=== PATIENT | female | born 1970 | race African-American/Black ===

== ENCOUNTER 2017-10-17 01:35 | Emergency (ER) | payer SELFPAY ==
[2017-10-17] MEDS ORDERED: OXYCODONE-ACETAMINOPHEN 5-325 MG TABLET PO ONE ×2 (02:04→03:41)
--- NOTE | 2017-10-17 02:12 | ER Document Report ---
ED General - General Chief Complaint: Foot Injury Stated Complaint: FOOT INJURY Time Seen by Provider: 10/17/17 01:59 Notes: Patient is a 47-year-old female who presents with complaint of right foot and ankle pain. She was playing basketball and rolled her ankle and felt a snap. She initially could bear weight but now says it hurts too much to bear weight. He denies any other injuries. TRAVEL OUTSIDE OF THE U.S. IN LAST 30 DAYS: No - Related Data Allergies/Adverse Reactions: No Known Allergies Allergy (Verified 10/17/17 01:40) Past Medical History - Social History Smoking Status: Unknown if Ever Smoked Frequency of alcohol use: None Drug Abuse: None Family History: CAD - mother has a heart problem but doesn't know what. She was told in the past she had a heart attack but denies, because it was painless. , Hypertension - Past Medical History Cardiac Medical History: Reports: Hx Hypertension - noncompliant with medications Pulmonary Medical History: Reports: Hx Asthma - states is not on any meds Renal/ Medical History: Reports: Hx Ovarian Cysts GI Medical History: Reports: Hx Crohn's Disease - in remission for 2 years, Hx Ulcer, Hx Colonoscopy, Hx Endoscopy Musculoskeltal Medical History: Reports Hx Arthritis, Reports Hx Musculoskeletal Trauma Skin Medical History: Reports Hx Cellulitis Psychiatric Medical History: Reports: Hx Anxiety, Hx Attention Deficit Hyperactivity Disorder, Hx Bipolar Disorder, Hx Depression, Hx Schizophrenia Past Surgical History: Reports: Hx Hysterectomy, Hx Oral Surgery - Immunizations Immunizations up to date: No Hx Diphtheria, Pertussis, Tetanus Vaccination: Yes - <5 years Review of Systems - Review of Systems Notes: My Normal Review Basic REVIEW OF SYSTEMS: CONSTITUTIONAL : Denies fever, chills, or sweats. Denies recent illness. MUSCULOSKELETAL: Pain in right foot and ankle. SKIN: Denies rash or skin lesions. NEUROLOGICAL: Denies sensory or motor loss. ALL OTHER SYSTEMS REVIEWED AND NEGATIVE. Physical Exam - Vital signs Vitals: Temp Pulse Resp BP Pulse Ox 98.1 F 87 20 171/98 H 97 10/17/17 01:46 10/17/17 01:46 10/17/17 01:46 10/17/17 01:46 10/17/17 01:46 - Notes Notes: General Appearance: Well nourished, alert, cooperative, no acute distress, moderate obvious discomfort. Vitals: reviewed, See vital signs table. Eyes: PERRL, EOMI, Conjuctiva clear Extremities: strength 5/5 in all extremities, good pulses in all extremities, swelling to the lateral aspect of the right foot and ankle. Pain to palpation over the area of swelling. Medial aspect of the foot and ankle is nontender. Knee is nontender to palpation. Skin: warm, dry, appropriate color, no rash Neuro: She is subjectively says she has some mild numbness in her toes however she can feel me touch all her toes well without difficulty. She is able to move all toes and her foot without difficulty. Course - Vital Signs Vital signs: Temp Pulse Resp BP Pulse Ox 97.8 F 86 18 159/78 H 99 10/17/17 05:14 10/17/17 05:14 10/17/17 05:14 10/17/17 05:14 10/17/17 05:14 Procedures - Immobilization right foot Pre-Proc Neuro Vasc Exam: Other - mild numbness in toes Immobilizer type: Posterior ankle Performed by: PCT Post-Proc Neuro Vasc Exam: Unchanged from pre-exam Discharge - Discharge Clinical Impression: Foot fracture, right Qualifiers: Encounter type: initial encounter Fracture type: closed Qualified Code(s): S92.901A - Unspecified fracture of right foot, initial encounter for closed fracture Condition: Good Disposition: HOME, SELF-CARE Instructions: Oral Narcotic Medication ([facility]) Additional Instructions: You have an avulsion fracture at the base of the 5th metatarsal. The fifth metatarsal is the bone in her foot that sits behind her pinky toe. You should wear the splint and using crutches until cleared by the orthopedic doctor. Please try and follow up with orthopedic doctor. If you are unable to see the orthopedic doctor you can return to the ER in 2 weeks for repeat x-rays. Please loosen the [place] wrap on the splint if you feel that the splint is too tight. Return to the ER immediately if you have worsening pain or repeat injury to your foot. Prescriptions: Hydrocodone/Acetaminophen [[place] 10-325 Tablet] 1 each PO Q4 PRN #15 tablet PRN Reason: Referrals: CHIQUI GALE MD [ACTIVE STAFF] - Follow up in 3-5 days
--- NOTE | 2017-10-17 02:40 | RADIOLOGY REPORT (SQ) ---
EXAM DESCRIPTION: ANKLE RIGHT COMPLETE CLINICAL HISTORY: trauma COMPARISON: None. FINDINGS: 3 views of the right ankle. Avulsion fracture involving the base of the fifth metatarsal. Plantar calcaneal spur. Normal osseous mineralization. Tibial plafond and talar dome have normal alignment. IMPRESSION: 1. Avulsion fracture involving the base of the fifth metatarsal.
--- NOTE | 2017-10-17 02:41 | RADIOLOGY REPORT (SQ) ---
EXAM DESCRIPTION: FOOT RIGHT COMPLETE CLINICAL HISTORY: trauma COMPARISON: None. FINDINGS: 3 views of the right foot. Acute nondisplaced avulsion fracture involving the base of the fifth metatarsal. Plantar calcaneal spur. Normal osseous mineralization. No other fracture identified. The tarsals and metatarsals appear appropriately aligned. IMPRESSION: 1. Acute nondisplaced avulsion fracture involving the base of the fifth metatarsal.
[2017-10-17] MEDS ORDERED: HYDROCODONE/ACETAMINOPHEN 5-325 MG (6 TAB/ER DISP) PO PRN (04:43)
[2017-10-17 05:15] VITALS: BP 159/78
== END 2017-10-17 05:14 | disposition home or self-care (01) ==
LOC: ER 01:35
DX: S92.354A Nondisplaced fracture of fifth metatarsal bone, right foot, initial encounter for closed fracture (principal); M79.671 Pain in right foot; M25.571 Pain in right ankle and joints of right foot; X50.0XXA Overexertion from strenuous movement or load, initial encounter; Y93.67 Activity, basketball; I10 Essential (primary) hypertension; J45.909 Unspecified asthma, uncomplicated
CPT/HCPCS: 99283

== ENCOUNTER 2017-10-30 02:23 | Emergency (ER) | payer SELFPAY ==
[2017-10-30] MEDS ORDERED: OXYCODONE-ACETAMINOPHEN 5-325 MG TABLET PO ONE (04:14)
--- NOTE | 2017-10-30 04:18 | ER Document Report ---
ED General - General Chief Complaint: Foot Injury Stated Complaint: RIGHT FOOT BROKEN Time Seen by Provider: 10/30/17 03:21 Mode of Arrival: Ambulatory Information source: Patient Notes: 47-year-old female with a history of recent right foot fracture presents with complaint of increasing right foot pain after falling last night. Patient states that she was walking with her crutches when she miss stepped and it caused her to fall backwards onto her butt. She denies any head injury, loss of consciousness. She is a resident of [place] and is here visiting her mother. She had a fall 2 weeks ago and was seen in the emergency department and found to have an avulsion fracture of the right fifth metatarsal. Patient was placed in a splint at that time provided crutches. She has not had orthopedic follow- up yet because she wanted to assure coverage. Patient currently denies headache , changes in vision, slurred speech, spinal tenderness, chest pain, shortness of breath, abdominal pain. TRAVEL OUTSIDE OF THE U.S. IN LAST 30 DAYS: No - HPI Onset: Yesterday Quality of pain: Achy, Throbbing Severity: Mild Pain Level: 1 Associated symptoms: None Exacerbated by: Denies Relieved by: Denies Similar symptoms previously: Yes Recently seen / treated by doctor: Yes - Related Data Allergies/Adverse Reactions: No Known Allergies Allergy (Verified 10/17/17 01:40) Past Medical History - General Information source: Patient - Social History Smoking Status: Current Every Day Smoker Chew tobacco use (# tins/day): No Frequency of alcohol use: None Drug Abuse: None Family History: CAD - mother has a heart problem but doesn't know what. She was told in the past she had a heart attack but denies, because it was painless. , Hypertension Patient has suicidal ideation: No Patient has homicidal ideation: No - Past Medical History Cardiac Medical History: Reports: Hx Hypertension - noncompliant with medications Pulmonary Medical History: Reports: Hx Asthma - states is not on any meds Renal/ Medical History: Reports: Hx Ovarian Cysts. Denies: Hx Peritoneal Dialysis GI Medical History: Reports: Hx Crohn's Disease - in remission for 2 years, Hx Ulcer, Hx Colonoscopy, Hx Endoscopy Musculoskeltal Medical History: Reports Hx Arthritis, Reports Hx Musculoskeletal Trauma Skin Medical History: Reports Hx Cellulitis Psychiatric Medical History: Reports: Hx Anxiety, Hx Attention Deficit Hyperactivity Disorder, Hx Bipolar Disorder, Hx Depression, Hx Schizophrenia Past Surgical History: Reports: Hx Hysterectomy, Hx Oral Surgery - Immunizations Immunizations up to date: No Hx Diphtheria, Pertussis, Tetanus Vaccination: Yes - <5 years Review of Systems - Review of Systems Notes: Patient currently denies headache, loss of consciousness, changes in vision, slurred speech, spinal tenderness, chest pain, shortness of breath, abdominal pain. Currently complaining of increased pain in the right foot. Physical Exam - Vital signs Vitals: Temp Pulse Resp BP Pulse Ox 98 F 70 18 150/94 H 97 10/30/17 02:27 10/30/17 02:27 10/30/17 02:27 10/30/17 02:27 10/30/17 02:27 Interpretation: Normal, Hypertensive Notes: PHYSICAL EXAMINATION: GENERAL: Well-appearing, well-nourished and in no acute distress. HEAD: Atraumatic, normocephalic. EYES: Pupils equal round and reactive to light, extraocular movements intact, conjunctiva are normal. ENT: Nares patent, oropharynx clear without exudates. Moist mucous membranes. NECK: Normal range of motion, supple without lymphadenopathy LUNGS: Breath sounds clear to auscultation bilaterally and equal. No wheezes rales or rhonchi. HEART: Regular rate and rhythm without murmurs ABDOMEN: Soft, nontender, nondistended abdomen. No guarding, no rebound. No masses appreciated. Female : deferred Musculoskeletal: Right lower extremity splint. Right foot tenderness, edema. Cap refill intact. Patient able to wiggle her toes. DP pulse intact. No calf tenderness. NEUROLOGICAL: Cranial nerves grossly intact. Normal speech, normal gait. Normal sensory, motor exams PSYCH: Normal mood, normal affect. SKIN: Warm, Dry, normal turgor, no rashes or lesions noted. - General General appearance: Appears well, Alert - HEENT Head: Normocephalic, Atraumatic Eyes: Normal Pupils: PERRL - Respiratory Respiratory status: No respiratory distress Chest status: Nontender Breath sounds: Normal Chest palpation: Normal - Cardiovascular Rhythm: Regular Heart sounds: Normal auscultation Murmur: No - Abdominal Inspection: Normal Distension: No distension Bowel sounds: Normal Tenderness: Nontender Organomegaly: No organomegaly - Back Back: Normal, Nontender. No: Vertebra tenderness - Extremities General upper extremity: Normal inspection - RLE in splint which was removed skin intact. sensation and cap refill intact. able to wiggle toes DP intact. somr flaking of skin but no blidters or skin breakdown, Nontender, Normal color , Normal ROM, Normal temperature General lower extremity: Normal inspection, Nontender, Normal color, Normal ROM , Normal temperature, Normal weight bearing. No: Rosanne's sign Ankle: Normal Foot: Tender, Edema - Neurological Neuro grossly intact: Yes Cognition: Normal Orientation: AAOx4 [place] Coma Scale Eye Opening: Spontaneous [place] Coma Scale Verbal: Oriented D[place] Coma Scale Motor: Obeys Commands Dilia Coma Scale Total: 15 Speech: Normal Motor strength normal: LUE, RUE, LLE, RLE Sensory: Normal Course - Re-evaluation Re-evalutation: Foot X-Ray 10/30/17 04:14 IMPRESSION: 1. Redemonstrated nondisplaced avulsion fracture involving the base of the fifth metatarsal. No significant interval change. 10/30/17 05:22 Repeat x-ray was obtained and showed no interval change after the fall. We replaced her splint. They will provide her with a short course of pain medication and give her orthopedic follow-up because the patient states she is lost her paperwork. 10/30/17 13:17 47 female s/p foot fracture at end of September presents s/p second fall yesterday evening. repeat x-rays unchanged. bandage and splint are cracked and filthy so replaced. Patient already has crutches. advised to f/u with ortho. Patient requesting additional meds which were provided but patient made aware that the ER will no longer supply her pain medication if she is not compliant with our instructions to f/u with ortho. 10/30/17 23:35 - Vital Signs Vital signs: Temp Pulse Resp BP Pulse Ox 98.1 F 71 16 148/88 H 97 10/30/17 05:51 10/30/17 05:51 10/30/17 05:51 10/30/17 05:51 10/30/17 05:51 Discharge - Discharge Clinical Impression: Foot fracture, right Qualifiers: Encounter type: sequela Fracture type: closed Qualified Code(s): S92.901S - Unspecified fracture of right foot, sequela Condition: Good Disposition: HOME, SELF-CARE Instructions: Foot Fracture ([facility]) Prescriptions: Oxycodone HCl/Acetaminophen [Percocet 5-325 mg Tablet] 1 tab PO Q6H PRN #12 tablet PRN Reason: Forms: Elevated Blood Pressure Referrals: CHIQUI GALE MD [ACTIVE STAFF] - Follow up as needed
--- NOTE | 2017-10-30 04:38 | RADIOLOGY REPORT (SQ) ---
EXAM DESCRIPTION: FOOT RIGHT COMPLETE CLINICAL HISTORY: fall recent fx COMPARISON: 10/17/2017 FINDINGS: 3 views of the right foot. Redemonstrated avulsion fracture involving the base of the fifth metatarsal. No new fractures identified. Tarsals and metatarsals are appropriately aligned. IMPRESSION: 1. Redemonstrated nondisplaced avulsion fracture involving the base of the fifth metatarsal. No significant interval change.
[2017-10-30 05:56] VITALS: BP 148/88
== END 2017-10-30 06:02 | disposition home or self-care (01) ==
LOC: ER 02:23
DX: S92.354A Nondisplaced fracture of fifth metatarsal bone, right foot, initial encounter for closed fracture (principal); W19.XXXA Unspecified fall, initial encounter; F17.200 Nicotine dependence, unspecified, uncomplicated; I10 Essential (primary) hypertension; J45.909 Unspecified asthma, uncomplicated
CPT/HCPCS: 99283

== ENCOUNTER 2017-12-03 15:56 | Emergency (ER) | payer SELFPAY ==
[2017-12-03 16:05] VITALS: BP 152/96
[2017-12-03] MEDS ORDERED: ALPRAZOLAM 0.5 MG TABLET PO ONE (16:36)
--- NOTE | 2017-12-03 16:47 | ER Document Report ---
ED General - General Chief Complaint: Anxiety Stated Complaint: ANXIETY/PAIN IN FOOT Time Seen by Provider: 12/03/17 16:09 Mode of Arrival: Ambulatory Information source: Patient TRAVEL OUTSIDE OF THE U.S[place] IN LAST 30 DAYS: No - HPI Patient complains to provider of: Right foot pain and anxiety Notes: Patient is here with 2 complaints. The patient broke her foot 2 months ago and continues to have some pain in the right foot. She tells me that she is originally from [place] insurance here and was unable to be seen and evaluated by orthopedics. She has been seen here 2 times and received prescriptions for pain medications twice for her foot. She states that she is continuing to have pain. She does report that she fell a few days ago but does not believe that she reinjured her foot. I did offer to x-ray her foot again today, she declined to have that done at this time. No fever, numbness, tingling, weakness. Patient also states that she is out of her Zyprexa. She is also out of her Xanax. She is requesting a refill of her Xanax, but states that the Zyprexa cost $800 and she cannot afford it. She denies any homicidal or suicidal ideation at this time. She simply would like a refill on her medications. She tells me that she is currently staying here because she recently found out that her sister is on dialysis she is not exactly sure when she will be going back to [place]. She is attempted to go back to the [facility] in the past, but states that the medications they were giving her were not helping. - Related Data Allergies/Adverse Reactions: No Known Allergies Allergy (Verified 10/17/17 01:40) Past Medical History - Social History Smoking Status: Current Every Day Smoker Frequency of alcohol use: Occasional Drug Abuse: None Family History: CAD - mother has a heart problem but doesn't know what. She was told in the past she had a heart attack but denies, because it was painless. , Hypertension Patient has suicidal ideation: No Patient has homicidal ideation: No - Past Medical History Cardiac Medical History: Reports: Hx Hypertension - noncompliant with medications Pulmonary Medical History: Reports: Hx Asthma - states is not on any meds Renal/ Medical History: Reports: Hx Ovarian Cysts. Denies: Hx Peritoneal Dialysis GI Medical History: Reports: Hx Crohn's Disease - in remission for 2 years, Hx Ulcer, Hx Colonoscopy, Hx Endoscopy Musculoskeltal Medical History: Reports Hx Arthritis, Reports Hx Musculoskeletal Trauma Skin Medical History: Reports Hx Cellulitis Psychiatric Medical History: Reports: Hx Anxiety, Hx Attention Deficit Hyperactivity Disorder, Hx Bipolar Disorder, Hx Depression, Hx Schizophrenia Past Surgical History: Reports: Hx Hysterectomy, Hx Oral Surgery - Immunizations Immunizations up to date: No Hx Diphtheria, Pertussis, Tetanus Vaccination: Yes - <5 years Review of Systems - Review of Systems -: Yes All other systems reviewed and negative Physical Exam - Vital signs Vitals: Temp Pulse Resp BP Pulse Ox 99.1 F 71 16 152/96 H 98 12/03/17 16:03 12/03/17 16:03 12/03/17 16:03 12/03/17 16:03 12/03/17 16:03 - Notes Notes: GENERAL: alert, cooperative, nontoxic, no distress. HEAD: normocephalic, atraumatic EYES: conjunctiva pink without discharge, no external redness or swelling. EARS: no external swelling, no external redness NOSE: atraumatic, no external swelling MOUTH/THROAT: mucous membranes moist and pink NECK: soft, supple, full range of motion, no meningismus. CHEST: no distress, lungs clear and equal throughout. No wheezing, rales, rhonchi. CARDIAC: regular rate and rhythm, no murmur, normal capillary refill, normal pulses. BACK: full range of motion, no CVA tenderness. EXTREMITIES: full range of motion of all extremities. No redness, no swelling. Tenderness to the lateral aspect of the right foot. No deformity. Normal pulse and sensation. NEURO: alert and oriented 3, no focal deficits, full range of motion of all extremities. PYSCH: appropriate mood, affect. Patient is cooperative. Suicidal ideation. SKIN: pink, warm, dry, no rash. Course - Re-evaluation Re-evalutation: 12/03/17 16:44 Patient is nontoxic appearing with stable vitals. She is here requesting a refill on pain medication for a foot she broke a few months ago as well as a refill on her Xanax and her Zyprexa. Explained that I cannot write her any further pain medications for her chronic fractured foot, and that it is extremely important for her to follow-up with either orthopedics or podiatry if she continues to have pain in her foot. I also explained that I cannot refill her Xanax. I did offer to write her for Vistaril to help with her anxiety, she declined to have that prescription. I was able to find several prescription drug savings for her Zyprexa on good Rx. She can have this filled for $20 at [facility], $22 at [facility], $37 at [facility], $37 at [facility]. She was given these coupons as well as a good Rx card and will be given a prescription for her Zyprexa. She will also be given another referral to [facility] and will be given a referral to podiatry. The patient is noted to have elevated blood pressure during today's emergency department visit. The patient was informed of this finding. The patient was instructed that this may be related to pre-hypertension and requires further evaluation with a primary care provider. The patient has no hypertensive symptoms at this time. The patient's emergency department workup and current diagnosis were explained to the patient and or family. Follow-up instructions were provided. Medications if prescribed were discussed. Instructions for when to return to the emergency department including specific worrisome symptoms were discussed with the patient and/or family. - Vital Signs Vital signs: Temp Pulse Resp BP Pulse Ox 99.1 F 71 16 152/96 H 98 12/03/17 16:03 12/03/17 16:03 12/03/17 16:03 12/03/17 16:03 12/03/17 16:03 Discharge - Discharge Clinical Impression: Anxiety Chronic foot pain Qualifiers: Laterality: right Qualified Code(s): M79.671 - Pain in right foot; G89.29 - Other chronic pain; G89.29 - Other chronic pain Condition: Stable Disposition: HOME, SELF-CARE Instructions: Anxiety ([facility]), Chronic Pain Control ([facility]) Additional Instructions: Take medications as prescribed. Established with a primary care doctor to next available appointment. Follow-up with podiatry at the next available appointment. Follow-up sooner for any worsening symptoms or further concerns. Your blood pressure was elevated during today's visit. Have this rechecked with your doctor. Prescriptions: Olanzapine [Zyprexa] 20 mg PO DAILY #30 tablet Forms: Elevated Blood Pressure, Smoking Cessation Education Referrals: HARRIET SUMNER DPM [ACTIVE STAFF] - Follow up as needed KACIE TREJO DPM [ACTIVE STAFF] - Follow up as needed JOAQUÍN ROBLES DPM [ACTIVE STAFF] - Follow up as needed KAE TORRES DPM [ACTIVE STAFF] - Follow up as needed LAITH FRENCH DPM [NO LOCAL MD] - Follow up as needed ABBY KEVIN DPM [NO LOCAL MD] - Follow up as needed [facility] [Provider Group] - Follow up as needed
== END 2017-12-03 16:54 | disposition home or self-care (01) ==
LOC: ER 15:56
DX: G89.29 Other chronic pain (principal); M79.671 Pain in right foot; F41.9 Anxiety disorder, unspecified; T42.4X6A Underdosing of benzodiazepines, initial encounter; F31.9 Bipolar disorder, unspecified; F20.9 Schizophrenia, unspecified; T43.596A Underdosing of other antipsychotics and neuroleptics, initial encounter; Z91.128 Patient's intentional underdosing of medication regimen for other reason; Z91.120 Patient's intentional underdosing of medication regimen due to financial hardship; Z91.81 History of falling; J45.909 Unspecified asthma, uncomplicated; I10 Essential (primary) hypertension
CPT/HCPCS: 99283

== ENCOUNTER 2018-02-18 22:29 | Emergency (ER) | payer SELFPAY ==
--- NOTE | 2018-02-19 00:43 | ER Document Report ---
ED General <SWEETIE SALAZAR - Last Filed: 02/19/18 02:47> - General Mode of Arrival: Ambulatory Information source: Patient TRAVEL OUTSIDE OF THE U.S. IN LAST 30 DAYS: No <CHARAN LOVE - Last Filed: 02/19/18 05:55> - General Chief Complaint: Vaginal Bleeding Stated Complaint: ANXIETY Time Seen by Provider: 02/19/18 00:27 Notes: Patient is a 47 year old female with Crohn's Disease and HTN presents to the emergency department complaining of multiple symptoms including nausea, anxiety and vaginal bleeding. Patient states when she wiped after having a bowel movement she noticed some blood on the toilet paper. She states this is abnormal for her due to having a complete hysterectomy. She further states she has been out of her anxiety medication of Zyprexa for 3 days. She states she normally takes 20 mg 2x daily of Zyprexa. (CHARAN LOVE) - Related Data Allergies/Adverse Reactions: No Known Allergies Allergy (Verified 10/17/17 01:40) Past Medical History - General Information source: Patient - Social History Smoking Status: Unknown if Ever Smoked Family History: CAD - mother has a heart problem but doesn't know what. She was told in the past she had a heart attack but denies, because it was painless. , Hypertension - Past Medical History Cardiac Medical History: Reports: Hx Hypertension - noncompliant with medications Pulmonary Medical History: Reports: Hx Asthma - states is not on any meds Renal/ Medical History: Reports: Hx Ovarian Cysts. Denies: Hx Peritoneal Dialysis GI Medical History: Reports: Hx Crohn's Disease - in remission for 2 years, Hx Ulcer, Hx Colonoscopy, Hx Endoscopy Musculoskeletal Medical History: Reports Hx Arthritis, Reports Hx Musculoskeletal Trauma Skin Medical History: Reports Hx Cellulitis Psychiatric Medical History: Reports: Hx Anxiety, Hx Attention Deficit Hyperactivity Disorder, Hx Bipolar Disorder, Hx Depression, Hx Schizophrenia Past Surgical History: Reports: Hx Hysterectomy, Hx Oral Surgery - Immunizations Immunizations up to date: No Hx Diphtheria, Pertussis, Tetanus Vaccination: Yes - <5 years <CHARAN LOVE - Last Filed: 02/19/18 05:55> Review of Systems - Review of Systems Constitutional: No symptoms reported EENT: No symptoms reported Cardiovascular: No symptoms reported Respiratory: No symptoms reported Gastrointestinal: See HPI, Nausea Genitourinary: No symptoms reported Female Genitourinary: See HPI, Vaginal bleeding Musculoskeletal: No symptoms reported Skin: No symptoms reported Hematologic/Lymphatic: No symptoms reported Neurological/Psychological: See HPI, Anxiety -: Yes All other systems reviewed and negative <CHARAN LOVE - Last Filed: 02/19/18 05:55> Physical Exam - Rectal Tenderness: No Hemorrhoids: Other - There were no fissures, there was a single small hemorrhoidal-like skin tag that did not look inflamed or suspicious for recent bleeding. There was no obvious bleeding.. No: Anal fissure - Genitourinary External exam: Normal Speculum exam: Normal - Patient is post hysterectomy. There is a white discharge that was sampled for lab testing. There were no irregularities in the vaginal mucosa or signs of bleeding. <SWEETIE SALAZAR - Last Filed: 02/19/18 02:47> <CHARAN LOVE - Last Filed: 02/19/18 05:55> - Vital signs Vitals: Temp Pulse Resp BP Pulse Ox 98.9 F 63 16 156/97 H 97 02/18/18 22:43 02/18/18 22:43 02/18/18 22:43 02/18/18 22:43 02/18/18 22:43 - Notes Notes: GENERAL: Alert, interacts well. No acute distress. HEAD: Normocephalic, atraumatic. EYES: Pupils equal, round, and reactive to light. Extraocular movements intact. ENT: Oral mucosa moist, tongue midline. NECK: Full range of motion. Supple. Trachea midline. LUNGS: Clear to auscultation bilaterally, no wheezes, rales, or rhonchi. No respiratory distress. HEART: Regular rate and rhythm. No murmurs, gallops, or rubs. ABDOMEN: Soft, non-tender. Non-distended. Bowel sounds present in all 4 quadrants. EXTREMITIES: Moves all 4 extremities spontaneously. No edema, radial and dorsalis pedis pulses 2/4 bilaterally. No cyanosis. NEUROLOGICAL: Alert and oriented x3. Normal speech. PSYCH: Normal affect, normal mood. SKIN: Warm, dry, normal turgor. No rashes or lesions noted. (CHARAN LOVE) - Vital Signs Vital signs: Temp Pulse Resp BP Pulse Ox 97.7 F 68 16 149/86 H 99 07/26/18 02:55 02/19/18 02:55 02/19/18 02:55 02/19/18 02:55 02/19/18 02:55 Discharge <SWEETIE SALAZAR - Last Filed: 02/19/18 02:47> <CHARAN LOVE - Last Filed: 02/19/18 05:55> - Discharge Clinical Impression: Vaginal bleeding, Anxiety Condition: Stable Disposition: HOME, SELF-CARE Additional Instructions: Your exam did not show any evidence of vaginal bleeding or any explanation for the bleeding that you reported. You were given a prescription for your Zyprexa. You should follow-up with a local medical doctor for further evaluation if you continue to have symptoms. You should follow-up with a local medical doctor or mental health provider to continue receiving your Zyprexa prescriptions on time. Prescriptions: Olanzapine [Zyprexa] 20 mg PO DAILY #30 tablet Scribe Attestation: 02/19/18 01:17 I personally performed the services described in the documentation, reviewed and edited the documentation which was dictated to the scribe in my presence, and it accurately records my words and actions. (SWEETIE SALAZAR) Scribe Documentation - Scribe Written by Alec:: Alec Sofia, 02/19/2018 00:51 acting as scribe for :: Catherine <CHARAN LOVE - Last Filed: 02/19/18 05:55>
[2018-02-19] MEDS ORDERED: OLANZAPINE 5 MG TABLET PO ONE (01:05)
[2018-02-19 02:16] LABS: BACTERIA (WET MOUNT) 4+ BACTERIA SEEN; T.VAGINALIS (WET MOUNT) NO TRICHOMONAS SEEN; WBCS (WET MOUNT) 2+ WBCS SEEN; YEAST (WET MOUNT) NO YEAST SEEN
[2018-02-19 02:58] VITALS: BP 149/86
[2018-02-19 03:40] LABS: CHLAM PCR NOT DETECTED (NOT DETECT); GON PCR NOT DETECTED (NOT DETECT)
== END 2018-02-19 03:00 | disposition home or self-care (01) ==
LOC: ER 22:29
DX: N93.9 Abnormal uterine and vaginal bleeding, unspecified (principal); N89.8 Other specified noninflammatory disorders of vagina; F41.9 Anxiety disorder, unspecified; T43.596A Underdosing of other antipsychotics and neuroleptics, initial encounter; Z91.128 Patient's intentional underdosing of medication regimen for other reason; Z91.14 Patient's other noncompliance with medication regimen; Z90.710 Acquired absence of both cervix and uterus; L91.8 Other hypertrophic disorders of the skin; I10 Essential (primary) hypertension; R11.0 Nausea; J45.909 Unspecified asthma, uncomplicated
CPT/HCPCS: 87210; 87491; 87591; 99284

== ENCOUNTER 2018-04-15 11:47 | Emergency (ER) | payer SELFPAY ==
[2018-04-15] MEDS ORDERED: LIDOCAINE 5% (700 MG) TRANSDERMAL ADH..PATCH TP ONE (13:23)
[2018-04-15] MEDS ORDERED: KETOROLAC TROMETHAMINE 60 MG/2 ML SDV IM ONE (13:23)
--- NOTE | 2018-04-15 13:24 | ER Document Report ---
HPI - HPI Pain Level: 5 Notes: Patient is a 47-year-old female with a history of Crohn's disease and tobacco abuse who presents to the ED complaining of acute on chronic right mid back pain that will occasionally radiate to left side of her back over the last several weeks. Patient states that her pains have been ongoing since a fall in October. Patient states that she is constantly lifting heavy objects as well at work and that has exacerbated her symptoms. Patient states that she feels knots in her back and some spasming. She denies any drug allergies. Patient states that she is eating and drinking without difficulties. She is urinating normally and having normal movements. She has not had any injections or procedures to her back. Denies any previous history of spinal abscess. Denies any headache, fever, head injury, neck pain, URI, sore throat, chest pain, palpitations, syncope, cough, shortness of breath, wheeze, dyspnea, abdominal pain, nausea/vomiting, urinary retention, dysuria, hematuria, loss of control of bowel or bladder, numbness/tingling, saddle anesthesia, muscle paralysis/ weakness, or rash. - ROS Systems Reviewed and Negative: Yes All other systems reviewed and negative - REPRODUCTIVE Reproductive: DENIES: : Past Medical History - Social History Smoking Status: Current Every Day Smoker Family History: CAD - mother has a heart problem but doesn't know what. She was told in the past she had a heart attack but denies, because it was painless. , Hypertension - Past Medical History Cardiac Medical History: Reports: Hx Hypertension - noncompliant with medications Pulmonary Medical History: Reports: Hx Asthma - states is not on any meds Renal/ Medical History: Reports: Hx Ovarian Cysts. Denies: Hx Peritoneal Dialysis GI Medical History: Reports: Hx Crohn's Disease - in remission for 2 years, Hx Ulcer, Hx Colonoscopy, Hx Endoscopy Musculoskeletal Medical History: Reports Hx Arthritis, Reports Hx Musculoskeletal Trauma Skin Medical History: Reports Hx Cellulitis Psychiatric Medical History: Reports: Hx Anxiety, Hx Attention Deficit Hyperactivity Disorder, Hx Bipolar Disorder, Hx Depression, Hx Schizophrenia Past Surgical History: Reports: Hx Hysterectomy, Hx Oral Surgery - Immunizations Immunizations up to date: No Hx Diphtheria, Pertussis, Tetanus Vaccination: Yes - <5 years Vertical Provider Document - CONSTITUTIONAL Agree With Documented VS: Yes Notes: PHYSICAL EXAMINATION: GENERAL: Well-appearing, well-nourished and in no acute distress. LUNGS: Breath sounds clear to auscultation bilaterally and equal. No wheezes rales or rhonchi. HEART: Regular rate and rhythm without murmurs, rubs, gallops. ABDOMEN: Soft, nontender, nondistended abdomen. No guarding, no rebound. No masses appreciated. Normal bowel sounds present. No CVA tenderness bilaterally. No pulsatile mass Musculoskeletal: LE's b/l: FROM to passive/active. Strength 5+/5. No deficits noted. No bony tenderness of extremities. Back: FROM to passive/active. Strength 5+/5. No vertebral point tenderness, stepoffs, or deformities. No other bony tenderness, erythema, swelling, or ecchymosis. SLR negative b/l. + mild tenderness to the T-paraspinal mm left side with associated trigger points, correlates with pain described. Mild spasming. No SI jt tenderness. No foot drop Extremities: No cyanosis, clubbing, or edema b/l. Peripheral pulses 2+. Capillary refill less than 2 seconds. NEUROLOGICAL: Normal speech, normal gait. Normal sensory, motor exams. Reflexes 2+ b/l. PSYCH: Normal mood, normal affect. SKIN: Warm, Dry, normal turgor, no rashes or lesions noted. - INFECTION CONTROL TRAVEL OUTSIDE OF THE [place] IN LAST 30 DAYS: No Course - Re-evaluation Re-evalutation: 04/15/18 13:21 Patient is an afebrile, well-hydrated, 47-year-old female who presents to the ED with acute on chronic thoracic back pain, suspect spasming and trigger points. Vitals are acceptable. PE is otherwise unremarkable for any focal neurological deficits. Patient was given Toradol and Lidoderm patch. She has no significant tachycardia, tachypnea, or hypoxia. She is nontoxic-appearing and is tolerating p.o. without difficulties. There are no signs of infection. No other red flag symptoms noted. No other labs or imaging warranted at this time based on H&P. Low suspicion for any meningitis, fracture, expanding/ ruptured AAA, cauda equina syndrome, epidural mass lesion/abscess, herniated disc causing severe spinal stenosis, or other systemic infection at this time. Patient is aware that this condition can change from initial presentation and that she needs monitor symptoms closely for any acute changes. I will send her home with a prescription for flexeril and naproxen. Conservative measures otherwise for symptoms. Recheck with your PCM in 3-5 days. Consider consult with orthopedic/physical therapy. Return to the ED with any worsening/ concerning symptoms otherwise as reviewed discharge. Patient is in agreement. - Vital Signs Vital signs: Temp Pulse Resp BP Pulse Ox 98.4 F 72 16 142/84 H 98 04/15/18 11:52 04/15/18 11:52 04/15/18 11:52 04/15/18 11:52 04/15/18 11:52 Discharge - Discharge Clinical Impression: Thoracic back pain Qualifiers: Chronicity: acute Back pain laterality: right Qualified Code(s): M54.6 - Pain in thoracic spine Condition: Stable Disposition: HOME, SELF-CARE Additional Instructions: Rest, Ice, Compression Tylenol/ibuprofen as needed Light stretches daily Strength exercises as able Moist heat and massage may help F/u with your PCP in 3-5 days for a recheck Consider consult(s) with Orthopedics/physical therapy for ongoing/worsening symptoms Return to the ED with any worsening symptoms and/or development of fever, headache, chest pain, palpitations, syncope, shortness of breath, trouble breathing, abdominal pain, n/v/d, blood in stool/urine, loss of control of bowel /bladder, urinary retention, muscle weakness/paralysis, saddle anesthesia, numbness/tingling, or other worsening symptoms that are concerning to you. Prescriptions: Cyclobenzaprine HCl [Flexeril 10 mg Tablet] 10 mg PO TIDP PRN #15 tab PRN Reason: Naproxen 500 mg PO BID PRN #30 tablet PRN Reason: Forms: Elevated Blood Pressure, Smoking Cessation Education, Return to Work Referrals: [facility] [Provider Group] - Follow up as needed [facility] [Provider Group] - Follow up as needed
[2018-04-15 14:00] VITALS: BP 149/88
== END 2018-04-15 14:00 | disposition home or self-care (01) ==
LOC: ER 11:47
DX: M54.6 Pain in thoracic spine (principal); F17.200 Nicotine dependence, unspecified, uncomplicated; Z91.14 Patient's other noncompliance with medication regimen; I10 Essential (primary) hypertension; K51.90 Ulcerative colitis, unspecified, without complications
CPT/HCPCS: 99283; J1885

== ENCOUNTER 2018-06-02 08:52 | Emergency (ER) | payer SELFPAY ==
[2018-06-02 10:23] LABS: APPEARANCE,URINE SLIGHTLY-CLOUDY; BILIRUBIN,URINE NEGATIVE (NEGATIVE); COLOR,URINE YELLOW; GLUCOSE, URINE NEGATIVE (NEGATIVE); KETONES,URINE NEGATIVE (NEGATIVE); LEUKOCYTE ESTERASE,URINE NEGATIVE (NEGATIVE); NITRITE,URINE NEGATIVE (NEGATIVE); PROTEIN,URINE NEGATIVE (NEGATIVE); URINE SPECIFIC GRAVITY 1.019; UROBILINOGEN,URINE NEGATIVE mg/dL (<2.0)
[2018-06-02] MEDS ORDERED: LIDOCAINE 5% (700 MG) TRANSDERMAL ADH..PATCH TP ONE (10:26)
[2018-06-02] MEDS ORDERED: OLANZAPINE 5 MG TABLET PO ONE (10:26)
--- NOTE | 2018-06-02 10:58 | ER Document Report ---
ED General - General Chief Complaint: Anxiety Stated Complaint: ANXIETY Time Seen by Provider: 06/02/18 10:06 Mode of Arrival: Ambulatory Information source: Patient Notes: Patient presents with chief complaint of request to have her medications refilled. Patient reports that she takes Zyprexa, Xanax and 2 blood pressure medications. Patient is unsure what blood pressure medication she takes however she states that they have been refilled here previously. Patient denies any acute symptoms today other than right shoulder pain that she states is chronic for her. TRAVEL OUTSIDE OF THE [place] IN LAST 30 DAYS: No - Related Data Allergies/Adverse Reactions: No Known Allergies Allergy (Verified 06/02/18 08:55) Past Medical History - General Information source: Patient - Social History Smoking Status: Current Every Day Smoker Frequency of alcohol use: Occasional Family History: CAD - mother has a heart problem but doesn't know what. She was told in the past she had a heart attack but denies, because it was painless. , Hypertension Patient has suicidal ideation: No Patient has homicidal ideation: No - Past Medical History Cardiac Medical History: Reports: Hx Hypertension - noncompliant with medications Pulmonary Medical History: Reports: Hx Asthma - states is not on any meds Renal/ Medical History: Reports: Hx Ovarian Cysts. Denies: Hx Peritoneal Dialysis GI Medical History: Reports: Hx Crohn's Disease - in remission for 2 years, Hx Ulcer, Hx Colonoscopy, Hx Endoscopy Musculoskeletal Medical History: Reports Hx Arthritis, Reports Hx Musculoskeletal Trauma Skin Medical History: Reports Hx Cellulitis Psychiatric Medical History: Reports: Hx Anxiety, Hx Attention Deficit Hyperactivity Disorder, Hx Bipolar Disorder, Hx Depression, Hx Schizophrenia Past Surgical History: Reports: Hx Hysterectomy, Hx Oral Surgery - Immunizations Immunizations up to date: No Hx Diphtheria, Pertussis, Tetanus Vaccination: Yes - <5 years Review of Systems - Review of Systems -: Yes All other systems reviewed and negative Physical Exam - Vital signs Vitals: Temp Pulse Resp BP Pulse Ox 98.6 F 65 18 183/103 H 100 06/02/18 09:05 06/02/18 09:05 06/02/18 09:05 06/02/18 09:05 06/02/18 09:05 - Notes Notes: PHYSICAL EXAMINATION: GENERAL: Well-appearing, well-nourished and in no acute distress. HEAD: Atraumatic, normocephalic. EYES: Pupils equal round extraocular movements intact, conjunctiva are normal. ENT: Nares patent NECK: Normal range of motion LUNGS: No respiratory distress Musculoskeletal: Normal range of motion, tenderness to palpation over posterior right shoulder. NEUROLOGICAL: Normal speech, normal gait. PSYCH: Normal mood, normal affect. SKIN: Warm, Dry, normal turgor, no rashes or lesions noted. Course - Re-evaluation Re-evalutation: 06/02/18 10:59 Zyprexa and lisinopril refilled. Patient given a prescription for Lidoderm patches per her request for her chronic shoulder and back pain. I did explain to patient that we do not refill controlled substances so I will not be refilling her Xanax today she will need to see primary care for that. Patient verbalizes understanding of same. Discharged home in stable condition. - Vital Signs Vital signs: Temp Pulse Resp BP Pulse Ox 98.6 F 65 18 183/103 H 100 06/02/18 09:05 06/02/18 09:05 06/02/18 09:05 06/02/18 09:05 06/02/18 09:05 Discharge - Discharge Clinical Impression: Medication refill, Anxiety Condition: Stable Disposition: HOME, SELF-CARE Instructions: Anxiety ([facility]) Additional Instructions: He was seen today for a medication refill. I refilled both your Zyprexa and your lisinopril. There is no record in the computer if you ever have taken in different blood pressure medication other than the lisinopril. The [facility] pharmacy does not have anything on record other than your Zyprexa. Please continue to follow-up with the [facility]. Prescriptions: Lidocaine [Lidoderm 5% (700 mg) Transdermal Patch] 1 patch TP DAILY #30 adh..patch Lisinopril 20 mg PO DAILY #30 tablet Olanzapine [Zyprexa] 20 mg PO DAILY #30 tablet Referrals: [facility] [Outside] - Follow up as needed
[2018-06-02 11:34] VITALS: BP 156/98
== END 2018-06-02 11:32 | disposition home or self-care (01) ==
LOC: ER 08:52
DX: Z76.0 Encounter for issue of repeat prescription (principal); F41.9 Anxiety disorder, unspecified; Z79.899 Other long term (current) drug therapy; F17.200 Nicotine dependence, unspecified, uncomplicated; I10 Essential (primary) hypertension; J45.909 Unspecified asthma, uncomplicated
CPT/HCPCS: 81001; 99281

== ENCOUNTER 2018-08-15 18:43 | Emergency (ER) | payer SELFPAY ==
[2018-08-15 18:49] VITALS: BP 123/96
--- NOTE | 2018-08-15 19:50 | ER Document Report ---
ED Medical Screen (RME) - General Chief Complaint: Shoulder Pain Stated Complaint: ANXIETY Time Seen by Provider: 08/15/18 19:47 Notes: Patient wants to know if she can get 3 prescriptions that she obtained in [place] couple weeks ago filled in the [facility]. She has a prescription for prednisone, Naprosyn, and Robaxin. They were written in [facility] 3 weeks ago. I told her I did not know whether she can get them filled or not but I think she might be able to since they are not controlled substances and are not narcotics. Additionally, patient is complaining of pain in her right back and right posterior shoulder region and wants refills of her medications for anxiety I told her writing prescriptions for her anxiety would be up to the individual provider who sees her to decide. TRAVEL OUTSIDE OF THE [place].S[place] IN LAST 30 DAYS: No - Related Data Allergies/Adverse Reactions: No Known Allergies Allergy (Verified 08/15/18 18:44) Past Medical History - Past Medical History Cardiac Medical History: Reports: Hx Hypertension - noncompliant with medications Pulmonary Medical History: Reports: Hx Asthma - states is not on any meds Renal/ Medical History: Reports: Hx Ovarian Cysts. Denies: Hx Peritoneal Dialysis GI Medical History: Reports: Hx Crohn's Disease - in remission for 2 years, Hx Ulcer, Hx Colonoscopy, Hx Endoscopy Musculoskeltal Medical History: Reports Hx Arthritis, Reports Hx Musculoskeletal Trauma Skin Medical History: Reports Hx Cellulitis Psychiatric Medical History: Reports: Hx Anxiety, Hx Attention Deficit Hyperactivity Disorder, Hx Bipolar Disorder, Hx Depression, Hx Schizophrenia Past Surgical History: Reports: Hx Hysterectomy, Hx Oral Surgery - Immunizations Immunizations up to date: No Hx Diphtheria, Pertussis, Tetanus Vaccination: Yes - <5 years Physical Exam - Vital signs Vitals: Temp Pulse Resp BP Pulse Ox 98.6 F 67 18 123/96 H 67 L 08/15/18 18:48 08/15/18 18:48 08/15/18 18:48 08/15/18 18:48 08/15/18 18:48 Course - Vital Signs Vital signs: Temp Pulse Resp BP Pulse Ox 98.6 F 67 18 123/96 H 67 L 08/15/18 18:48 08/15/18 18:48 08/15/18 18:48 08/15/18 18:48 08/15/18 18:48
[2018-08-15] MEDS ORDERED: OLANZAPINE 5 MG TABLET PO ONE (20:53)
[2018-08-15] MEDS ORDERED: LIDOCAINE 5% (700 MG) TRANSDERMAL ADH..PATCH TP ONE (20:55)
--- NOTE | 2018-08-15 21:01 | ER Document Report ---
HPI - HPI Patient complains to provider of: anxiety, shoulder pain Time Seen by Provider: 08/15/18 19:47 Pain Level: 2 Context: 48F patient known to this emergency department is complaining of pain in her right back and right posterior shoulder region and wants refills of her medications for anxiety. She states she is currently stable psychologically and just ran out. She sees Dr. Tipton at [facility] but is in between jobs and insurance and just needs a refill because of cost $150 to go see him there. She has been in this emergency department in the past for refills for medications. She has not had any visits for any psychiatric emergencies. She denies any other symptoms. - REPRODUCTIVE Reproductive: DENIES: : - MUSCULOSKELETAL Musculoskeletal: REPORTS: Extremity pain - R shoulder Past Medical History - General Information source: Patient - Social History Smoking Status: Current Every Day Smoker Chew tobacco use (# tins/day): No Frequency of alcohol use: Occasional Drug Abuse: Marijuana Family History: CAD - mother has a heart problem but doesn't know what. She was told in the past she had a heart attack but denies, because it was painless., Hypertension Patient has suicidal ideation: No Patient has homicidal ideation: No - Past Medical History Cardiac Medical History: Reports: Hx Hypertension - noncompliant with medications Pulmonary Medical History: Reports: Hx Asthma - states is not on any meds Renal/ Medical History: Reports: Hx Ovarian Cysts. Denies: Hx Peritoneal Dialysis GI Medical History: Reports: Hx Crohn's Disease - in remission for 2 years, Hx Ulcer, Hx Colonoscopy, Hx Endoscopy Musculoskeletal Medical History: Reports Hx Arthritis, Reports Hx Musculoskeletal Trauma Skin Medical History: Reports Hx Cellulitis Psychiatric Medical History: Reports: Hx Anxiety, Hx Attention Deficit Hyperactivity Disorder, Hx Bipolar Disorder, Hx Depression, Hx Schizophrenia Past Surgical History: Reports: Hx Hysterectomy, Hx Oral Surgery - Immunizations Immunizations up to date: No Hx Diphtheria, Pertussis, Tetanus Vaccination: Yes - <5 years Vertical Provider Document - CONSTITUTIONAL Notes: PHYSICAL EXAMINATION: Reviewed vital signs and charting by RN GENERAL: Well-appearing, well-nourished and in no acute distress. HEAD: Atraumatic, normocephalic. EYES: Pupils equal round, extraocular movements intact, sclera anicteric, conjunctiva are normal. ENT: nares patent, Moist mucous membranes. NECK: Normal range of motion LUNGS: Breath sounds clear to auscultation bilaterally and equal. No wheezes rales or rhonchi. HEART: Regular rate and rhythm without murmurs ABDOMEN: Soft, nontender, normoactive bowel sounds. No guarding, no rebound. No masses appreciated. EXTREMITIES: Normal range of motion, no pitting or edema. No cyanosis. NEUROLOGICAL: Face symmetric. Extraocular motions intact. Normal speech, normal gait. PSYCH: Normal mood, normal affect. SKIN: Warm, Dry, normal turgor, no rashes or lesions noted. - INFECTION CONTROL TRAVEL OUTSIDE OF THE [place] IN LAST 30 DAYS: No Course - Re-evaluation Re-evalutation: 08/16/18 01:38 48 female who is been seen in this emergency department multiple times for medication refill presents to the emergency department for medication refill and back pain. Her last visit here was for the exact same encounter. She states that she does not have insurance, she gets seen by Dr. Tipton at the [facility], and she needs a refill on her Zyprexa. She also complains that she needed dumping for her back pain. Previous encounters showed that her Zyprexa was refilled temporarily so I am comfortable giving her 20 Zyprexa to bridge her until she can see Dr. Tipton and she can come up with the money for the visit. I also placed a lidocaine patch on her back. She asked for narcotic medication but I declined telling it was inappropriate. Patient is stable for discharge. - Vital Signs Vital signs: Temp Pulse Resp BP Pulse Ox 98.6 F 67 18 123/96 H 67 L 08/15/18 18:48 08/15/18 18:48 08/15/18 18:48 08/15/18 18:48 08/15/18 18:48 Discharge - Discharge Clinical Impression: Medication refill Shoulder pain, right Qualifiers: Chronicity: chronic Qualified Code(s): M25.511 - Pain in right shoulder Condition: Good Disposition: HOME, SELF-CARE Instructions: Exercise Program for the Shoulder ([facility]) Additional Instructions: You are seen in the emergency department this evening for a problem with your right shoulder which is chronic and for a refill on your medication. After speaking with my supervising physician I feel it is appropriate to give you 20 days worth of the Zyprexa. Also, we have placed a lidocaine patch in your back to help with your shoulder pain. Is important to perform exercises and physical therapy as these knots that you get are typically due to posture issues and overuse. If you develop any concerning symptoms, you do not feel safe, you lose the ability to use your right arm, or you have any other concerning symptoms please immediately return to the emergency department. Prescriptions: Olanzapine [Zyprexa] 20 mg PO DAILY 20 Days #20 tablet
== END 2018-08-15 21:07 | disposition home or self-care (01) ==
LOC: ER 18:43
DX: M25.511 Pain in right shoulder (principal); M54.9 Dorsalgia, unspecified; F41.9 Anxiety disorder, unspecified; Z76.0 Encounter for issue of repeat prescription; F17.200 Nicotine dependence, unspecified, uncomplicated; I10 Essential (primary) hypertension; J45.909 Unspecified asthma, uncomplicated
CPT/HCPCS: 99283

== ENCOUNTER 2018-10-03 15:14 | Emergency (ER) | payer SELFPAY ==
[2018-10-03 15:30] VITALS: BP 185/102
--- NOTE | 2018-10-03 16:26 | ER Document Report ---
ED Medical Screen (RME) - General Chief Complaint: Abdominal Pain Stated Complaint: FLU SYMPTOMS Time Seen by Provider: 10/03/18 16:25 Mode of Arrival: Ambulatory Information source: Patient Notes: 48-year-old female with Crohn's, hypothyroidism, hypertension presents with complaint of myalgia, abdominal pain, subjective fever, nausea and cough. I have greeted and performed a rapid initial assessment of this patient. A comprehensive ED assessment and evaluation of the patient, analysis of test results and completion of medical decision making process we will be contacted by additional ED providers. PHYSICAL EXAMINATION: Vital signs reviewed-hypertensive GENERAL: Ill-appearing LUNGS: No respiratory distress Musculoskeletal: Normal range of motion NEUROLOGICAL: Normal speech, normal gait. PSYCH: Normal mood, normal affect. SKIN: Warm, Dry, normal turgor, no rashes or lesions noted. TRAVEL OUTSIDE OF THE [place] IN LAST 30 DAYS: No - HPI Onset: Other Onset/Duration: Persistent Quality of pain: Achy Severity: Moderate Associated Symptoms: Abdominal pain, Body/muscle aches, Chills, Nausea, Sore throat Exacerbated by: Denies Relieved by: Denies Similar symptoms previously: No Recently seen / treated by doctor: No - Related Data Smoking: Non-smoker Frequency of alcohol use: None Drug Abuse: None Allergies/Adverse Reactions: No Known Allergies Allergy (Verified 08/15/18 18:44) Past Medical History - Past Medical History Cardiac Medical History: Reports: Hx Hypertension - noncompliant with medications Pulmonary Medical History: Reports: Hx Asthma - states is not on any meds Renal/ Medical History: Reports: Hx Ovarian Cysts. Denies: Hx Peritoneal Dialysis GI Medical History: Reports: Hx Crohn's Disease - in remission for 2 years, Hx Ulcer, Hx Colonoscopy, Hx Endoscopy Musculoskeltal Medical History: Reports Hx Arthritis, Reports Hx Musculoskeletal Trauma Skin Medical History: Reports Hx Cellulitis Psychiatric Medical History: Reports: Hx Anxiety, Hx Attention Deficit Hyperactivity Disorder, Hx Bipolar Disorder, Hx Depression, Hx Schizophrenia Past Surgical History: Reports: Hx Hysterectomy, Hx Oral Surgery - Immunizations Immunizations up to date: No Hx Diphtheria, Pertussis, Tetanus Vaccination: Yes - <5 years Physical Exam - Vital signs Vitals: Temp Pulse Resp BP Pulse Ox 99.3 F 87 23 H 185/102 H 98 10/03/18 15:28 10/03/18 15:28 10/03/18 15:28 10/03/18 15:28 10/03/18 15:28 Course - Vital Signs Vital signs: Temp Pulse Resp BP Pulse Ox 99.3 F 87 23 H 185/102 H 98 10/03/18 15:28 10/03/18 15:28 10/03/18 15:28 10/03/18 15:28 10/03/18 15:28
[2018-10-03 17:31] LABS: APPEARANCE,URINE CLOUDY; BILIRUBIN,URINE NEGATIVE (NEGATIVE); COLOR,URINE AMBER; GLUCOSE, URINE NEGATIVE (NEGATIVE); KETONES,URINE 20 mg/dL (NEGATIVE); LEUKOCYTE ESTERASE,URINE NEGATIVE (NEGATIVE); NITRITE,URINE NEGATIVE (NEGATIVE); PROTEIN,URINE 30 mg/dL (NEGATIVE); URINE SPECIFIC GRAVITY 1.028
[2018-10-03 17:34] LABS: ABSOLUTE LYMPHOCYTES (AUTO) 1.4 10^3/uL (0.5-4.7); ABSOLUTE MONOCYTES (AUTO) 0.6 10^3/uL (0.1-1.4); ABSOLUTE NEUT (AUTO) 2.2 10^3/uL (1.7-8.2); BASOPHILS % (AUTO) 0.6 % (0-2); EOSINOPHILS % (AUTO) 0.1 % (0-6); HEMATOCRIT 40.6 % (36.0-47.0); HEMOGLOBIN 13.5 g/dL (12.0-15.5); MEAN CORPUSCULAR HEMOGLOBIN 28.3 pg (27.0-33.4); MEAN CORPUSCULAR HGB CONC 33.3 g/dL (32.0-36.0); MEAN CORPUSCULAR VOLUME 85 fl (80-97); MONOCYTES % (AUTO) 13.6 % (3-13); PLATELET COUNT 240 10^3/uL (150-450); RED BLOOD COUNT 4.77 10^6/uL (3.72-5.28); RED CELL DISTRIBUTION WIDTH 14.2 % (11.5-14.0); SEGMENTED NEUTROPHILS % (AUTO) 52.7 % (42-78); TOTAL CELLS COUNTED % (AUTO) 100 %; WHITE BLOOD COUNT 4.1 10^3/uL (4.0-10.5)
[2018-10-03 17:37] LABS: ALANINE AMINOTRANSFERASE 18 U/L (9-52); ALBUMIN 4.6 g/dL (3.5-5.0); ALKALINE PHOSPHATASE 77 U/L (38-126); ANION GAP 10 (5-19); ASPARTATE AMINO TRANSFERASE 23 U/L (14-36); BILIRUBIN,DIRECT 0.2 mg/dL (0.0-0.4); BILIRUBIN,TOTAL 0.4 mg/dL (0.2-1.3); BLOOD UREA NITROGEN 9 mg/dL (7-20); CALCIUM 9.8 mg/dL (8.4-10.2); CARBON DIOXIDE 30 mmol/L (22-30); CHLORIDE 96 mmol/L (98-107); GLUCOSE 85 mg/dL (75-110); LIPASE 48.2 U/L (23-300); POTASSIUM 3.4 mmol/L (3.6-5.0); SODIUM 135.6 mmol/L (137-145); TOTAL PROTEIN 8.6 g/dL (6.3-8.2)
[2018-10-03 17:47] LABS: A TYPE INFLUENZA AG NEGATIVE (NEGATIVE)
[2018-10-03 17:48] LABS: B INFLUENZA AG NEGATIVE (NEGATIVE)
--- NOTE | 2018-10-03 18:16 | RADIOLOGY REPORT (SQ) ---
EXAM DESCRIPTION: CHEST 2 VIEWS COMPLETED DATE/TIME: 10/03/2018 5:24 pm REASON FOR STUDY: fever COMPARISON: Chest x-ray 04/04/2016, 01/01/2013. CT soft tissue neck 06/08/2015 EXAM PARAMETERS: NUMBER OF VIEWS: two views TECHNIQUE: Digital Frontal and Lateral radiographic views of the chest acquired. RADIATION DOSE: NA LIMITATIONS: none FINDINGS: LUNGS AND PLEURA: No consolidation, pneumothorax or pleural effusion. MEDIASTINUM AND HILAR STRUCTURES: Persistent soft tissue density at the right paratracheal region. HEART AND VASCULAR STRUCTURES: Heart normal size. No evidence for failure. BONES: No acute findings. HARDWARE: None in the chest. IMPRESSION: Persistent soft tissue density at the right paratracheal region, may be secondary to inc rease in the previously described goiter. If there is clinical concern for mediastinal adenopathy or mass, CT can be obtained for further evaluation. Otherwise, no acute radiographic finding in the est. TECHNICAL DOCUMENTATION: JOB ID: [id number] [employer]- All Rights Reserved Reading location - IP/workstation name: [email or web address]
[2018-10-03] MEDS ORDERED: ONDANSETRON HCL INJ/PF 4 MG/2 ML SDV IV ONE ×2 (18:23→19:56)
[2018-10-03] MEDS ORDERED: LISINOPRIL 10 MG TABLET PO ONE (19:13)
[2018-10-03] MEDS ORDERED: AMLODIPINE BESYLATE 10 MG TABLET PO ONE (19:13)
[2018-10-03] MEDS ORDERED: CEPHALEXIN 500 MG CAPSULE PO ONE (19:14)
--- NOTE | 2018-10-03 19:20 | ER Document Report ---
ED General - General Chief Complaint: Abdominal Pain Stated Complaint: FLU SYMPTOMS Time Seen by Provider: 10/03/18 16:25 Mode of Arrival: Ambulatory Notes: Patient is a 48-year-old female with a past medical history of essential hypertension, noncompliant with medications, presents complaining of multitude of concerns. Her first complaint is regarding her elevation of blood pressure. She is requesting a refill of her home blood pressure medications. The patient also reports that for the past 3-4 days she has had nasal congestion, cough without sputum production, sore throat and body aches. States that her neighbor had the flu and she believes she has the same. Nothing seems to improve or worsen the symptoms. States this feels similar to when she had viral upper respiratory infections in the past. Has not seen her primary care doctor regarding these issues. She also complains of some dysuria, hesitancy, has been ongoing for several days. Feels similar to when she has had urinary tract infections in the past. TRAVEL OUTSIDE OF THE [place] IN LAST 30 DAYS: No - Related Data Allergies/Adverse Reactions: No Known Allergies Allergy (Verified 08/15/18 18:44) Past Medical History - General Information source: Patient - Social History Smoking Status: Current Every Day Smoker Frequency of alcohol use: None Drug Abuse: None Lives with: Alone Family History: CAD - mother has a heart problem but doesn't know what. She was told in the past she had a heart attack but denies, because it was painless., Hypertension Patient has suicidal ideation: No Patient has homicidal ideation: No - Past Medical History Cardiac Medical History: Reports: Hx Hypertension - noncompliant with medications Pulmonary Medical History: Reports: Hx Asthma - states is not on any meds Renal/ Medical History: Reports: Hx Ovarian Cysts. Denies: Hx Peritoneal Dialysis GI Medical History: Reports: Hx Crohn's Disease - in remission for 2 years, Hx Ulcer, Hx Colonoscopy, Hx Endoscopy Musculoskeletal Medical History: Reports Hx Arthritis, Reports Hx Musculo skeletal Trauma Skin Medical History: Reports Hx Cellulitis Psychiatric Medical History: Reports: Hx Anxiety, Hx Attention Deficit Hyperactivity Disorder, Hx Bipolar Disorder, Hx Depression, Hx Schizophrenia Past Surgical History: Reports: Hx Hysterectomy, Hx Oral Surgery - Immunizations Immunizations up to date: No Hx Diphtheria, Pertussis, Tetanus Vaccination: Yes - <5 years Review of Systems - Review of Systems Notes: Constitutional: Negative for fever. HENT: Positive for sore throat. Eyes: Negative for visual changes. Cardiovascular: Negative for chest pain. Respiratory: Negative for shortness of breath. Positive for cough Gastrointestinal: Negative for abdominal pain, positive for nausea Genitourinary: Positive for dysuria. Musculoskeletal: Negative for back pain. Skin: Negative for rash. Neurological: Negative for headaches, weakness or numbness. 10 point ROS negative except as marked above and in HPI. Physical Exam - Vital signs Vitals: Temp Pulse Resp BP Pulse Ox 99.3 F 87 23 H 185/102 H 98 10/03/18 15:28 10/03/18 15:28 10/03/18 15:28 10/03/18 15:28 10/03/18 15:28 Interpretation: Hypertensive Notes: PHYSICAL EXAMINATION: GENERAL: Well-appearing, well-nourished and in no acute distress. HEAD: Atraumatic, normocephalic. EYES: Pupils equal round and reactive to light, extraocular movements intact, sclera anicteric, conjunctiva are normal. ENT: nares patent, oropharynx clear without exudates. Moist mucous membranes. NECK: Normal range of motion, supple without lymphadenopathy LUNGS: Breath sounds clear to auscultation bilaterally and equal. No wheezes rales or rhonchi. HEART: Regular rate and rhythm without murmurs ABDOMEN: Soft, nontender, normoactive bowel sounds. No guarding, no rebound. No masses appreciated. EXTREMITIES: Normal range of motion, no pitting or edema. No cyanosis. NEUROLOGICAL: No focal neurological deficits. Moves all extremities spontaneously and on command. PSYCH: Normal mood, normal affect. SKIN: Warm, Dry, normal turgor, no rashes or lesions noted. Course - Re-evaluation Re-evalutation: 10/03/18 19:16 Patient presents with multiple distinct complaints: 1.) Dysuria: Symptoms consistent with an acute cystitis. Vitals wnl. No history of fever, flank pain, or constitution symptoms to suggest ascending infection at this time. Patient is well in appearance, tolerating oral intake without difficulty. No focal abdominal tenderness to suggest acute appendicitis, biliary pathology, acute pancreatitis, tubo-ovarian abscesses, or pelvic inflammatory disease. Patient will be started on antibiotics at this time. A culture has been sent. 2.) Essential hypertension:Patient denies any symptoms concerning for SAH, dissection, TX, or encephalopaty. Alert, oriented, and denies any symptoms at time of assessment. Normal neuro exam. I have restarted the patient on her normal home dose of amlodipine 10 mg daily as well as lisinopril 40 mg daily. I have discussed critical importance of follow up with PCP within 1 week and increased risk of devastating stroke, heart attack, respiratory distress, and other life threatening complications if blood pressure is not reduced appropriately. Diet and exercise habits also discussed. 3.) Sinus pressure, cough, congestion: Patient presents with cough, sore throat, sinus congestion, subjective fever with a flulike illness although our flu test here is negative. Clinical history and exam is not consistent with an acute bacterial meningitis, encephalitis, pneumonia, there is no evidence of a cellulitis on examination. Chest x-ray is clear without any evidence of an acute pneumonia. Suspect nonspecific viral upper respiratory infection. Labs a re otherwise unremarkable. Patient is tolerated oral intake without difficulty. At this time will discharge with return precautions and follow-up recommendations. Verbal discharge instructions given a the bedside and opportunity for questions given. Medication warnings reviewed. Patient is in agreement with this plan and has verbalized understanding of return precautions and the need for primary care follow-up in the next 24-72 hours. - Vital Signs Vital signs: Temp Pulse Resp BP Pulse Ox 99.3 F 87 23 H 185/102 H 98 10/03/18 15:28 10/03/18 15:28 10/03/18 15:28 10/03/18 15:28 10/03/18 15:28 - Laboratory Result Diagrams: 10/03/18 16:46 10/03/18 16:46 Laboratory results interpreted by me: 10/03/18 10/03/18 10/03/18 16:46 16:46 16:46 RDW 14.2 H Monocytes % 13.6 H Sodium 135.6 L Potassium 3.4 L Chloride 96 L Total Protein 8.6 H Urine Protein 30 H Urine Ketones 20 H Urine Blood SMALL H Urine Urobilinogen 4.0 H - Diagnostic Test Radiology reviewed: Image reviewed, Reports reviewed Radiology results interpreted by me: 10/03/18 19:19 Chest x-ray: No acute infiltrate or pneumothorax Discharge - Discharge Clinical Impression: Viral upper respiratory infection, Essential hypertension, Cough Urinary tract infection Qualifiers: Urinary tract infection type: acute cystitis Hematuria presence: with hematuria Qualified Code(s): N30.01 - Acute cystitis with hematuria Condition: Good Disposition: HOME, SELF-CARE Additional Instructions: Your symptoms are likely due to a viral infection either influenza or similar virus. The only treatment at this time is supportive care including drinking plenty of fluids, Tylenol and ibuprofen, as well as nausea medicines which you will be sent home with. Your symptoms will likely last for 7-10 days. Please return to the emergency department immediately if you become confused, have persistent vomiting, pass out, have severe headache, or have any other symptoms that are worrisome to you. Follow-up with your primary care doctor in the next several days. Your urine shows findings consistent with a urinary tract infection. Please take all the antibiotics as directed even if your symptoms have improved. Please follow-up with your primary care physician as needed. Return to emergency room if you develop fever >101F, persistent vomiting, become lethargic, have severe pain in your sides, or any other symptoms that are concerning to you. You were seen today for blood pressure that was high. This is a long-term risk factor for multiple medical problems including heart attack and stroke. However, the blood pressure in of itself will not cause you to have an acute stroke or heart attack over the course of just several days or weeks. You need to have a gradual reduction of your blood pressure back to normal levels over the next several months in conjunction with your primary care physician. You have been restarted on her normal home blood pressure medications. Return if you develop headache, weakness, numbness, chest pain, pass out, or have any other symptoms that are concerning to you. Prescriptions: Amlodipine Besylate [Norvasc 10 mg Tablet] 10 mg PO DAILY #30 tablet Cephalexin Monohydrate [Keflex 500 mg Capsule] 500 mg PO QID #20 capsule Lisinopril [Prinivil 40 mg Tablet] 40 mg PO DAILY #30 tablet Prednisone [Deltasone 20 mg Tablet] 2 tab PO DAILY 5 Days tablet Forms: Return to Work
== END 2018-10-03 21:34 | disposition home or self-care (01) ==
LOC: ER 15:14
DX: I10 Essential (primary) hypertension (principal); Z76.0 Encounter for issue of repeat prescription; J06.9 Acute upper respiratory infection, unspecified; B97.89 Other viral agents as the cause of diseases classified elsewhere; N30.01 Acute cystitis with hematuria; R09.81 Nasal congestion; R05 Cough; R11.0 Nausea; J02.9 Acute pharyngitis, unspecified; F17.200 Nicotine dependence, unspecified, uncomplicated; J45.909 Unspecified asthma, uncomplicated; J34.89 Other specified disorders of nose and nasal sinuses
CPT/HCPCS: 96376; 99283; 96374; 36415; 87086; 83690; 85025; 80053; 81001; 87804; 71046; J2405

== ENCOUNTER 2018-10-06 10:16 | Emergency (ER) | payer SELFPAY ==
--- NOTE | 2018-10-06 12:10 | ER Document Report ---
ED Medical Screen (RME) - General Chief Complaint: Shortness Of Breath Stated Complaint: SHORTNESS OF BREATH Time Seen by Provider: 10/06/18 12:06 Mode of Arrival: Ambulatory Information source: Patient, [facility] Records Notes: 48-year-old female presents with multiple complaints of shortness of breath, low back pain, bilateral arm and leg pain. Patient was seen 3 days prior to arrival and diagnosed with a urinary tract infection and started on Keflex. Patient states that she has been compliant with her medication. I have greeted and performed a rapid initial assessment of this patient. A comprehensive ED assessment and evaluation of the patient, analysis of test results and completion of medical decision making process we will be contacted by additional ED providers. PHYSICAL EXAMINATION: Vital signs reviewed GENERAL: Well-appearing, well-nourished and in no acute distress. LUNGS: No respiratory distress Musculoskeletal: Normal range of motion NEUROLOGICAL: Normal speech, normal gait. PSYCH: Normal mood, normal affect. SKIN: Warm, Dry, normal turgor, no rashes or lesions noted. TRAVEL OUTSIDE OF THE [place] IN LAST 30 DAYS: No - HPI Onset: Other Quality of pain: Achy Associated Symptoms: Body/muscle aches, Shortness of breath Exacerbated by: Denies Relieved by: Denies Similar symptoms previously: Yes Recently seen / treated by doctor: Yes - Related Data Allergies/Adverse Reactions: No Known Allergies Allergy (Verified 10/06/18 10:17) Past Medical History - Social History Chew tobacco use (# tins/day): No Frequency of alcohol use: Occasional Drug Abuse: None - Past Medical History Cardiac Medical History: Reports: Hx Hypertension - noncompliant with medications Pulmonary Medical History: Reports: Hx Asthma - states is not on any meds Renal/ Medical History: Reports: Hx Ovarian Cysts. Denies: Hx Peritoneal Dialysis GI Medical History: Reports: Hx Crohn's Disease - in remission for 2 years, Hx Ulcer, Hx Colonoscopy, Hx Endoscopy Musculoskeltal Medical History: Reports Hx Arthritis, Reports Hx Musculoskeletal Trauma Skin Medical History: Reports Hx Cellulitis Psychiatric Medical History: Reports: Hx Anxiety, Hx Attention Deficit Hyperactivity Disorder, Hx Bipolar Disorder, Hx Depression, Hx Schizophrenia Past Surgical History: Reports: Hx Hysterectomy, Hx Oral Surgery - Immunizations Immunizations up to date: No Hx Diphtheria, Pertussis, Tetanus Vaccination: Yes - <5 years Physical Exam - Vital signs Vitals: Temp Pulse Resp BP Pulse Ox 98.1 F 72 16 108/72 96 10/06/18 10:21 10/06/18 10:21 10/06/18 10:21 10/06/18 10:21 10/06/18 10:21 Course - Vital Signs Vital signs: Temp Pulse Resp BP Pulse Ox 98.1 F 72 16 108/72 96 10/06/18 10:21 10/06/18 10:21 10/06/18 10:21 10/06/18 10:21 10/06/18 10:21
[2018-10-06] MEDS ORDERED: ONDANSETRON HCL INJ/PF 4 MG/2 ML SDV ONE (12:29)
[2018-10-06] MEDS ORDERED: NORMAL SALINE 1000 ML 1,000 ML IV ONE (14:17)
[2018-10-06] MEDS ORDERED: PROCHLORPERAZINE EDISYLATE INJ 10 MG/2 ML VIAL IV ONE (14:17)
[2018-10-06] MEDS ORDERED: KETOROLAC TROMETHAMINE INJ/PF 30 MG/1 ML SDV IV ONE (14:17)
[2018-10-06] MEDS ORDERED: DIPHENHYDRAMINE HCL 50 MG/ML VIAL IV ONE (14:17)
[2018-10-06 14:32] LABS: ABSOLUTE LYMPHOCYTES (AUTO) 2.3 10^3/uL (0.5-4.7); ABSOLUTE MONOCYTES (AUTO) 0.4 10^3/uL (0.1-1.4); ABSOLUTE NEUT (AUTO) 1.1 10^3/uL (1.7-8.2); BASOPHILS % (AUTO) 0.3 % (0-2); EOSINOPHILS % (AUTO) 0.3 % (0-6); HEMATOCRIT 40.7 % (36.0-47.0); HEMOGLOBIN 13.4 g/dL (12.0-15.5); LYMPHOCYTES % (AUTO) 59.7 % (13-45); MEAN CORPUSCULAR HGB CONC 32.9 g/dL (32.0-36.0); MEAN CORPUSCULAR VOLUME 85 fl (80-97); MONOCYTES % (AUTO) 10.4 % (3-13); PLATELET COUNT 236 10^3/uL (150-450); RED BLOOD COUNT 4.78 10^6/uL (3.72-5.28); RED CELL DISTRIBUTION WIDTH 14.4 % (11.5-14.0); SEGMENTED NEUTROPHILS % (AUTO) 29.3 % (42-78); TOTAL CELLS COUNTED % (AUTO) 100 %; WHITE BLOOD COUNT 3.8 10^3/uL (4.0-10.5)
[2018-10-06 14:39] LABS: ALANINE AMINOTRANSFERASE 13 U/L (9-52); ALBUMIN 4.4 g/dL (3.5-5.0); ALKALINE PHOSPHATASE 56 U/L (38-126); ANION GAP 8 (5-19); ASPARTATE AMINO TRANSFERASE 23 U/L (14-36); BILIRUBIN,DIRECT 0.3 mg/dL (0.0-0.4); BILIRUBIN,TOTAL 0.3 mg/dL (0.2-1.3); BLOOD UREA NITROGEN 13 mg/dL (7-20); CARBON DIOXIDE 33 mmol/L (22-30); CHLORIDE 97 mmol/L (98-107); CREATINE KINASE 74 U/L (30-135); GLUCOSE 92 mg/dL (75-110); POTASSIUM 3.9 mmol/L (3.6-5.0); SODIUM 137.8 mmol/L (137-145); TOTAL PROTEIN 8.2 g/dL (6.3-8.2)
[2018-10-06 14:50] LABS: APPEARANCE,URINE SLIGHTLY-CLOUDY; BILIRUBIN,URINE SMALL (NEGATIVE); COLOR,URINE YELLOW; GLUCOSE, URINE NEGATIVE (NEGATIVE); KETONES,URINE TRACE mg/dL (NEGATIVE); LEUKOCYTE ESTERASE,URINE NEGATIVE (NEGATIVE); NITRITE,URINE NEGATIVE (NEGATIVE); PROTEIN,URINE 30 mg/dL (NEGATIVE)
[2018-10-06 14:55] LABS: FREE T3 3.95 pg/mL (2.77-5.27)
[2018-10-06 14:57] LABS: FREE T4 (FREE THYROXINE) 1.33 ng/dL (0.78-2.19)
[2018-10-06 15:09] LABS: THYROID STIMULATING HORMONE 0.21 uIU/mL (0.47-4.68)
--- NOTE | 2018-10-06 15:19 | RADIOLOGY REPORT (SQ) ---
EXAM DESCRIPTION: CHEST 2 VIEWS COMPLETED DATE/TIME: 10/06/2018 3:05 pm REASON FOR STUDY: sob COMPARISON: CT soft tissue neck 06/08/2015 Two-view chest 10/03/2018 EXAM PARAMETERS: NUMBER OF VIEWS: two views TECHNIQUE: Digital Frontal and Lateral radiographic views of the chest acquired. RADIATION DOSE: NA LIMITATIONS: none FINDINGS: LUNGS AND PLEURA: Bibasilar atelectasis. No fluffy alveolar infiltrates worrisome for pul monary edema or pneumonia. No pleural effusion. No pneumothorax. MEDIASTINUM AND HILAR STRUCTURES: Mass along the rightward paratracheal region at the thoracic inlet likely thyroid goiter. This is similar compared to chest film 10/03/[address] soft tissue neck 06/08 HEART AND VASCULAR STRUCTURES: Heart normal size. No evidence for failure. BONES: No acute findings. HARDWARE: None in the chest. OTHER: No other significant finding. IMPRESSION: Bibasilar atelectasis Substernal goiter at the thoracic inlet on the right TECHNICAL DOCUMENTATION: JOB ID: [id number] [email or web address]- All Rights Reserved Reading location - IP/workstation name: [email or web address]
--- NOTE | 2018-10-06 16:31 | ER Document Report ---
ED General - General Chief Complaint: Shortness Of Breath Stated Complaint: SHORTNESS OF BREATH Time Seen by Provider: 10/06/18 12:06 Primary Care Provider: [facility] [Provider Group] - Follow up as needed [facility] [Provider Group] - Follow up as needed Mode of Arrival: Ambulatory Information source: Patient Notes: Patient presents complaining of multiple complaints including low back pain, enteritis arm and leg pain bilaterally. Shortness of breath and fatigue. Patient states that she has had right flank pain for the past 4 days. Patient reports nausea. Patient also complains of headache to the frontal area for the past 4 days. Patient denies any vomiting or diarrhea. Patient denies any urinary symptoms. She was evaluated here recently for flulike symptoms. Patient denies any history of PE or DVT. Patient denies any recent travel or immobilization. TRAVEL OUTSIDE OF THE [place] IN LAST 30 DAYS: No - HPI Onset: Other - 4 days Onset/Duration: Persistent Quality of pain: Achy Pain Level: 4 Associated symptoms: Body/muscle aches, Headache, Nausea, Shortness of breath, Other - Low back pain. denies: Nonproductive cough, Diarrhea, Fever, Vomiting, Sore throat Exacerbated by: Movement Relieved by: Denies Similar symptoms previously: Yes Recently seen / treated by doctor: Yes - Related Data Allergies/Adverse Reactions: No Known Allergies Allergy (Verified 10/06/18 10:17) Past Medical History - General Information source: Patient, [facility] Records - Social History Smoking Status: Current Every Day Smoker Chew tobacco use (# tins/day): No Smoking Education Provided: Yes Frequency of alcohol use: Occasional Drug Abuse: None Occupation: Dishwashing Lives with: Spouse/Significant other Family History: CAD - mother has a heart problem but doesn't know what. She was told in the past she had a heart attack but denies, because it was painless., Hypertension Patient has suicidal ideation: No Patient has homicidal ideation: No - Past Medical History Cardiac Medical History: Reports: Hx Hypertension - noncompliant with medications Pulmonary Medical History: Reports: Hx Asthma - states is not on any meds Renal/ Medical History: Reports: Hx Ovarian Cysts. Denies: Hx Peritoneal Dialysis GI Medical History: Reports: Hx Crohn's Disease - in remission for 2 years, Hx Ulcer, Hx Colonoscopy, Hx Endoscopy Musculoskeletal Medical History: Reports Hx Arthritis, Reports Hx Musculoskeletal Trauma Skin Medical History: Reports Hx Cellulitis Psychiatric Medical History: Reports: Hx Anxiety, Hx Attention Deficit Hyperactivity Disorder, Hx Bipolar Disorder, Hx Depression, Hx Schizophrenia Past Surgical History: Reports: Hx Hysterectomy, Hx Oral Surgery - Immunizations Immunizations up to date: No Hx Diphtheria, Pertussis, Tetanus Vaccination: Yes - <5 years Review of Systems - Review of Systems Constitutional: Recent illness - recently treated for UTI. denies: Fever EENT: No symptoms reported Cardiovascular: No symptoms reported. denies: Chest pain Respiratory: Short of breath. denies: Cough Gastrointestinal: Nausea. denies: Abdominal pain, Diarrhea, Vomiting Genitourinary: No symptoms reported. denies: Dysuria Female Genitourinary: No symptoms reported. denies: Vaginal discharge, Vaginal bleeding Musculoskeletal: Back pain Skin: No symptoms reported. denies: Rash Hematologic/Lymphatic: No symptoms reported Neurological/Psychological: Headaches Physical Exam - Vital signs Vitals: Temp Pulse Resp BP Pulse Ox 98.1 F 72 16 108/72 96 10/06/18 10:21 10/06/18 10:21 10/06/18 10:21 10/06/18 10:21 10/06/18 10:21 - General General appearance: Appears well, Alert In distress: None Notes: PHYSICAL EXAMINATION: GENERAL: Well-appearing, well-nourished and in no acute distress. HEAD: Atraumatic, normocephalic. EYES: sclera clear, anicteric, conjunctiva are normal. ENT: nares patent, Moist mucous membranes. NECK: Normal range of motion, supple no lymphadenopathy LUNGS: respirations unlabored HEART: Regular rate and rhythm without murmurs EXTREMITIES: Normal range of motion, no pitting or edema. No cyanosis. Gait normal, pt ambulates without difficulty BACK: Lower lumbar paraspinal tenderness, no midline tenderness, no deformities or step-offs. No CVA tenderness. NEUROLOGICAL: Cranial nerves grossly intact. Normal speech, normal gait. No saddle anesthesia. PSYCH: Normal mood, normal affect. SKIN: Warm, Dry, normal turgor, no rashes or lesions noted. - HEENT Head: Normocephalic, Atraumatic Eyes: Normal Conjunctiva: Normal Ears: Normal External canal: Normal Tympanic membrane: Normal Nasal: Normal Mouth/Lips: Normal Mucous membranes: Normal Pharynx: Normal. No: Erythema, Exudate Neck: Normal, Supple. No: Lymphadenopathy, Meningismus - Respiratory Respiratory status: No respiratory distress Chest status: Nontender Breath sounds: Normal. No: Rales, Rhonchi, Stridor, Wheezing Chest palpation: Normal - Cardiovascular Rhythm: Regular Heart sounds: S1 appreciated, S2 appreciated Murmur: No - Abdominal Inspection: Normal Distension: No distension Bowel sounds: Normal Tenderness: Nontender - Back Back: Tender - Lower lumbar paraspinal tenderness. No: Deformity/step-off, CVA tenderness - Extremities General upper extremity: Normal inspection, Tender - Tenderness to muscles, Normal color, Normal ROM, Normal strength, Normal temperature. No: Edema General lower extremity: Normal inspection, Tender - Generalized tenderness, Normal color, Normal ROM, Normal strength, Normal temperature. No: Edema - Neurological Neuro grossly intact: Yes Cognition: Normal Prosper Coma Scale Eye Opening: Spontaneous Dilia Coma Scale Verbal: Oriented Dilia Coma Scale Motor: Obeys Commands Prosper Coma Scale Total: 15 - Psychological Associated symptoms: Normal affect, Normal mood - Skin Skin Temperature: Warm Skin Moisture: Dry Skin Color: Normal Course - Re-evaluation Re-evalutation: 10/06/18 16:27 The patient presents with headache without signs of [employer] H[employer]ORY bleed, stroke, infection, or other serious etiology. The patient is neurologically intact. Given the extremely low risk of these diagnoses further testing and evaluation for these possibilities does not appear to be indicated at this time. The patient has been instructed to return if the symptoms worsen or change in any way. The patient presents with low back pain without signs of spinal cord compression, cauda equina syndrome, infection, aneurysm, or other serious etiology. The patient is neurologically intact. Given the extremely risk of these diagnoses further testing and evaluation for these possibilities does not appear to be indicated at this time. Patient has been instructed to return if the symptoms worsen or change in any way. - Vital Signs Vital signs: Temp Pulse Resp BP Pulse Ox 97.8 F 59 L 16 124/82 100 10/06/18 16:35 10/06/18 16:35 10/06/18 10:21 10/06/18 16:35 10/06/18 16:35 - Laboratory Result Diagrams: 10/06/18 12:32 10/06/18 12:32 Laboratory results interpreted by me: 10/06/18 10/06/18 10/06/18 12:32 12:32 12:32 WBC 3.8 L RDW 14.4 H Seg Neutrophils % 29.3 L Lymphocytes % 59.7 H Absolute Neutrophils 1.1 L Chloride 97 L Carbon Dioxide 33 H Est GFR (Non-Af Amer) 54 L TSH 0.21 L Urine Protein Urine Ketones Urine Bilirubin Urine Urobilinogen 10/06/18 14:31 WBC RDW Seg Neutrophils % Lymphocytes % Absolute Neutrophils Chloride Carbon Dioxide Est GFR (Non-Af Amer) TSH Urine Protein 30 H Urine Ketones TRACE H Urine Bilirubin SMALL H Urine Urobilinogen 4.0 H 10/07/18 08:49 Labs- Entire Visit 10/06/18 10/06/18 10/06/18 12:32 12:32 12:32 WBC 3.8 L RBC 4.78 Hgb 13.4 Hct 40.7 MCV 85 MCH 28.0 MCHC 32.9 RDW 14.4 H Plt Count 236 Seg Neutrophils % 29.3 L Lymphocytes % 59.7 H Monocytes % 10.4 Eosinophils % 0.3 Basophils % 0.3 Absolute Neutrophils 1.1 L Absolute Lymphocytes 2.3 Absolute Monocytes 0.4 Absolute Eosinophils 0.0 Absolute Basophils 0.0 Sodium 137.8 Potassium 3.9 Chloride 97 L Carbon Dioxide 33 H Anion Gap 8 BUN 13 Creatinine 1.09 Est GFR ( Amer) > 60 Est GFR (Non-Af Amer) 54 L Glucose 92 Calcium 10.0 Total Bilirubin 0.3 Direct Bilirubin 0.3 Neonat Total Bilirubin Not Reportable Neonat Direct Bilirubin Not Reportable Neonat Indirect Bili Not Reportable AST 23 ALT 13 Alkaline Phosphatase 56 Creatine Kinase 74 Total Protein 8.2 Albumin 4.4 TSH 0.21 L Free T4 1.33 Free T3 pg/mL 3.95 Urine Color Urine Appearance Urine pH Ur Specific Molena Urine Protein Urine Glucose (UA) Urine Ketones Urine Blood Urine Nitrite Urine Bilirubin Urine Urobilinogen Ur Leukocyte Esterase Urine WBC (Auto) Urine RBC (Auto) U Hyaline Cast (Auto) Urine Bacteria (Auto) Squamous Epi Cells Auto Urine Mucus (Auto) Urine Ascorbic Acid 10/06/18 14:31 WBC RBC Hgb Hct MCV MCH MCHC RDW Plt Count Seg Neutrophils % Lymphocytes % Monocytes % Eosinophils % Basophils % Absolute Neutrophils Absolute Lymphocytes Absolute Monocytes Absolute Eosinophils Absolute Basophils Sodium Potassium Chloride Carbon Dioxide Anion Gap BUN Creatinine Est GFR ( Amer) Est GFR (Non-Af Amer) Glucose Calcium Total Bilirubin Direct Bilirubin Neonat Total Bilirubin Neonat Direct Bilirubin Neonat Indirect Bili AST ALT Alkaline Phosphatase Creatine Kinase Total Protein Albumin TSH Free T4 Free T3 pg/mL Urine Color YELLOW Urine Appearance SLIGHTLY-CLOUDY Urine pH 5.0 Ur Specific Molena 1.030 Urine Protein 30 H Urine Glucose (UA) NEGATIVE Urine Ketones TRACE H Urine Blood NEGATIVE Urine Nitrite NEGATIVE Urine Bilirubin SMALL H Urine Urobilinogen 4.0 H Ur Leukocyte Esterase NEGATIVE Urine WBC (Auto) 4 Urine RBC (Auto) 4 U Hyaline Cast (Auto) 3 Urine Bacteria (Auto) 1+ Squamous Epi Cells Auto 1 Urine Mucus (Auto) OCC Urine Ascorbic Acid NEGATIVE Discharge - Discharge Clinical Impression: Goiter Dyspnea Qualifiers: Dyspnea type: unspecified Qualified Code(s): R06.00 - Dyspnea, unspecified Low back pain Qualifiers: Chronicity: acute Back pain laterality: unspecified Sciatica presence: without sciatica Qualified Code(s): M54.5 - Low back pain Headache Qualifiers: Headache type: unspecified Headache chronicity pattern: unspecified pattern Intractability: not intractable Qualified Code(s): R51 - Headache Condition: Stable Disposition: HOME, SELF-CARE Instructions: Dyspnea, Nonspecific ([facility]), Headache ([facility]), Low Back Pain ([facility]) Additional Instructions: Return immediately for any new or worsening symptoms Followup with your primary care provider, call tomorrow to make a followup appointment Prescriptions: Hydrocodone/Acetaminophen [Electra 5-325 mg Tablet] 1 tab PO Q6 PRN #12 tablet PRN Reason: Promethazine HCl [Phenergan 25 mg Tablet] 25 mg PO Q6H PRN #10 tablet PRN Reason: Forms: Smoking Cessation Education, Return to Work Referrals: [facility] [Provider Group] - Follow up as needed [facility] [Provider Group] - Follow up as needed
[2018-10-06 16:36] VITALS: BP 124/82
== END 2018-10-06 16:36 | disposition home or self-care (01) ==
LOC: ER 10:16
DX: E04.9 Nontoxic goiter, unspecified (principal); R06.00 Dyspnea, unspecified; M54.5 Low back pain; R51 Headache; R53.83 Other fatigue; R10.9 Unspecified abdominal pain; M79.10 Myalgia, unspecified site; R11.0 Nausea; F17.200 Nicotine dependence, unspecified, uncomplicated; I10 Essential (primary) hypertension; J45.909 Unspecified asthma, uncomplicated
CPT/HCPCS: 99285; 96361; 96374; 96375; 36415; 84439; 82550; 84443; 85025; 80053; 81001; 84481; 71046; J1200; J1885; J0780; J2405; J7030

== ENCOUNTER 2018-11-10 10:28 | Emergency (ER) | payer SELFPAY ==
[2018-11-10 10:36] VITALS: BP 135/83
[2018-11-10] MEDS ORDERED: OLANZAPINE 5 MG TABLET PO ONE (10:49)
--- NOTE | 2018-11-10 10:55 | ER Document Report ---
ED Psych Disorder / Suicide - General Chief Complaint: Anxiety Stated Complaint: ANXIETY Time Seen by Provider: 11/10/18 10:43 Mode of Arrival: Ambulatory Information source: Patient TRAVEL OUTSIDE OF THE [place] IN LAST 30 DAYS: No - HPI Patient complains to provider of: Other - Anxiety Notes: Patient is here with complaints of anxiety. The patient has a history of anxiety and takes Zyprexa. She is in the process of waiting for her insurance to restart so that she can see her primary care doctor that typically prescribes this for her. She states that she took her last dose about 4 days ago and is starting to feel anxious. She denies any homicidal or suicidal ideation. No hallucinations. No chest pain or shortness of breath. No abdominal pain. No fever. No nausea, vomiting, diarrhea. No other complaints at this time. - Related Data Allergies/Adverse Reactions: No Known Allergies Allergy (Verified 11/10/18 10:29) Past Medical History - Social History Smoking Status: Current Every Day Smoker Family History: CAD - mother has a heart problem but doesn't know what. She was told in the past she had a heart attack but denies, because it was painless., Hypertension Patient has suicidal ideation: No Patient has homicidal ideation: No - Past Medical History Cardiac Medical History: Reports: Hx Hypertension - noncompliant with medications Pulmonary Medical History: Reports: Hx Asthma - states is not on any meds Renal/ Medical History: Reports: Hx Ovarian Cysts. Denies: Hx Peritoneal Dialysis GI Medical History: Reports: Hx Crohn's Disease - in remission for 2 years, Hx Ulcer, Hx Colonoscopy, Hx Endoscopy Musculoskeletal Medical History: Reports Hx Arthritis, Reports Hx Musculoskeletal Trauma Skin Medical History: Reports Hx Cellulitis Psychiatric Medical History: Reports: Hx Anxiety, Hx Attention Deficit Hyperactivity Disorder, Hx Bipolar Disorder, Hx Depression, Hx Schizophrenia Past Surgical History: Reports: Hx Hysterectomy, Hx Oral Surgery - Immunizations Immunizations up to date: No Hx Diphtheria, Pertussis, Tetanus Vaccination: Yes - <5 years Review of Systems - Review of Systems -: Yes All other systems reviewed and negative Physical Exam - Vital signs Vitals: Temp Pulse Resp BP Pulse Ox 97.9 F 60 16 135/83 H 99 11/10/18 10:35 11/10/18 10:35 11/10/18 10:35 11/10/18 10:35 11/10/18 10:35 - Notes Notes: GENERAL: alert, cooperative, nontoxic, no distress. HEAD: normocephalic, atraumatic EYES: conjunctiva pink without discharge, no external redness or swelling. EARS: no external swelling, no external redness NOSE: atraumatic, no external swelling MOUTH/THROAT: mucous membranes moist and pink, posterior pharynx without erythema, swelling, exudate. No trismus or drooling. NECK: soft, supple, full range of motion, no meningismus. CHEST: no distress, lungs clear and equal throughout. No wheezing, rales, rhonchi. CARDIAC: regular rate and rhythm, no murmur, normal capillary refill, normal pulses. No peripheral edema noted. ABDOMEN: Soft, nontender. BACK: full range of motion, no CVA tenderness. EXTREMITIES: full range of motion of all extremities. No redness, no swelling. NEURO: alert and oriented x 3, no focal deficits, full range of motion of all extremities. PYSCH: appropriate mood, affect. Patient is cooperative. Patient appears slightly anxious. SKIN: pink, warm, dry, no rash. Course - Re-evaluation Re-evalutation: 11/10/18 10:52 Patient is nontoxic-appearing with stable vitals. Patient is here with complaints of anxiety. Patient has a history of anxiety. She has been out of her Zyprexa for the last 3 days. She is feeling more anxious. She does not have insurance currently and is waiting for it to kick back into that she can go back to see her primary care doctor. No homicidal or suicidal ideation. She looks well. She has a nonfocal exam. Patient will be given a dose of Zyprexa here and will be discharged home with a prescription for 30 days. She is instructed to follow-up with her primary care doctor to next available appointment. Follow-up sooner or return for worsening symptoms, homicidal or suicidal ideation, hallucinations, or for any further concerns. 11/10/18 10:53 The patient's emergency department workup and current diagnosis were explained to the patient and or family. Follow-up instructions were provided. Medications if prescribed were discussed. Instructions for when to return to the emergency department including specific worrisome symptoms were discussed with the patient and/or family. - Vital Signs Vital signs: Temp Pulse Resp BP Pulse Ox 97.9 F 60 16 135/83 H 99 11/10/18 10:35 11/10/18 10:35 11/10/18 10:35 11/10/18 10:35 11/10/18 10:35 Discharge - Discharge Clinical Impression: Anxiety, Medication refill Condition: Stable Disposition: HOME, SELF-CARE Instructions: Anxiety ([facility]) Additional Instructions: Take medication as prescribed. Follow-up with your doctor at the next available appointment. Follow-up sooner for worsening anxiety, suicidal or homicidal ideation, depression, hallucinations, or for any further concerns. Prescriptions: Olanzapine [Zyprexa] 20 mg PO DAILY 30 Days tablet Referrals: [facility] [Provider Group] - Follow up as needed
== END 2018-11-10 10:57 | disposition home or self-care (01) ==
LOC: ER 10:28
DX: F41.9 Anxiety disorder, unspecified (principal); T43.596A Underdosing of other antipsychotics and neuroleptics, initial encounter; Z91.120 Patient's intentional underdosing of medication regimen due to financial hardship; Z91.14 Patient's other noncompliance with medication regimen; Z76.0 Encounter for issue of repeat prescription; F17.200 Nicotine dependence, unspecified, uncomplicated; I10 Essential (primary) hypertension; J45.909 Unspecified asthma, uncomplicated
CPT/HCPCS: 99281

== ENCOUNTER 2018-12-01 09:10 | Emergency (ER) | payer SELFPAY ==
--- NOTE | 2018-12-01 09:44 | ER Document Report ---
ED Medical Screen (RME) - General Chief Complaint: Abdominal Pain Stated Complaint: ABDOMINAL PAIN Time Seen by Provider: 12/01/18 09:38 Mode of Arrival: Ambulatory Information source: Patient Notes: Patient presents emergency department with complaints of lower abdominal pain for the past week. Reports history of Crohn's. Reports feels like it is a flare. Reports she is voiding without problems also complains of chronic right shoulder pain and anxiety. Denies fever vomiting diarrhea. Does report she had some diarrhea but took care of it. I have greeted and performed a rapid initial assessment of this patient. A comprehensive ED assessment and evaluation of the patient, analysis of test results and completion of the medical decision making process will be conducted by additional ED providers. Dictation of this chart was performed using voice recognition software; therefore, there may be some unintended grammatical errors. TRAVEL OUTSIDE OF THE [place] IN LAST 30 DAYS: No - Related Data Allergies/Adverse Reactions: No Known Allergies Allergy (Verified 12/01/18 09:11) Past Medical History - Past Medical History Cardiac Medical History: Reports: Hx Hypertension - noncompliant with medications Pulmonary Medical History: Reports: Hx Asthma - states is not on any meds Renal/ Medical History: Reports: Hx Ovarian Cysts. Denies: Hx Peritoneal Dialysis GI Medical History: Reports: Hx Crohn's Disease - in remission for 2 years, Hx Ulcer, Hx Colonoscopy, Hx Endoscopy Musculoskeltal Medical History: Reports Hx Arthritis, Reports Hx Musculoskeletal Trauma Skin Medical History: Reports Hx Cellulitis Psychiatric Medical History: Reports: Hx Anxiety, Hx Attention Deficit Hyperactivity Disorder, Hx Bipolar Disorder, Hx Depression, Hx Schizophrenia Past Surgical History: Reports: Hx Hysterectomy, Hx Oral Surgery - Immunizations Immunizations up to date: No Hx Diphtheria, Pertussis, Tetanus Vaccination: Yes - <5 years Physical Exam - Vital signs Vitals: Temp Pulse Resp BP Pulse Ox 97.6 F 61 20 154/102 H 98 12/01/18 09:16 12/01/18 09:16 12/01/18 09:16 12/01/18 09:16 12/01/18 09:16 Course - Vital Signs Vital signs: Temp Pulse Resp BP Pulse Ox 97.6 F 61 20 154/102 H 98 12/01/18 09:16 12/01/18 09:16 12/01/18 09:16 12/01/18 09:16 12/01/18 09:16
[2018-12-01 10:51] LABS: ABSOLUTE MONOCYTES (AUTO) 0.3 10^3/uL (0.1-1.4); ABSOLUTE NEUT (AUTO) 1.9 10^3/uL (1.7-8.2); BASOPHILS % (AUTO) 0.5 % (0-2); EOSINOPHILS % (AUTO) 0.9 % (0-6); HEMATOCRIT 37.7 % (36.0-47.0); HEMOGLOBIN 12.1 g/dL (12.0-15.5); MEAN CORPUSCULAR HEMOGLOBIN 27.5 pg (27.0-33.4); MEAN CORPUSCULAR HGB CONC 32.3 g/dL (32.0-36.0); MEAN CORPUSCULAR VOLUME 85 fl (80-97); PLATELET COUNT 248 10^3/uL (150-450); RED BLOOD COUNT 4.42 10^6/uL (3.72-5.28); RED CELL DISTRIBUTION WIDTH 15.4 % (11.5-14.0); SEGMENTED NEUTROPHILS % (AUTO) 44.6 % (42-78); TOTAL CELLS COUNTED % (AUTO) 100 %; WHITE BLOOD COUNT 4.4 10^3/uL (4.0-10.5)
[2018-12-01 10:55] LABS: APPEARANCE,URINE CLEAR; BILIRUBIN,URINE NEGATIVE (NEGATIVE); COLOR,URINE YELLOW; GLUCOSE, URINE NEGATIVE (NEGATIVE); KETONES,URINE NEGATIVE (NEGATIVE); LEUKOCYTE ESTERASE,URINE NEGATIVE (NEGATIVE); NITRITE,URINE NEGATIVE (NEGATIVE); PROTEIN,URINE NEGATIVE (NEGATIVE); URINE SPECIFIC GRAVITY 1.014; UROBILINOGEN,URINE NEGATIVE mg/dL (<2.0)
[2018-12-01] MEDS ORDERED: LIDOCAINE 5% (700 MG) TRANSDERMAL ADH..PATCH TP ONE (10:55)
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
[2018-12-01 11:16] VITALS: BP 175/97
== END 2018-12-01 11:12 | disposition home or self-care (01) ==
LOC: ER 09:10
DX: K50.90 Crohn's disease, unspecified, without complications (principal); M25.511 Pain in right shoulder; I10 Essential (primary) hypertension; F17.200 Nicotine dependence, unspecified, uncomplicated; Z90.710 Acquired absence of both cervix and uterus
CPT/HCPCS: 36415; 81001; 85025; 99284

== ENCOUNTER 2019-02-12 14:31 | Emergency (ER) | payer SELFPAY ==
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
[2019-02-12] MEDS ORDERED: HYDROXYZINE PAMOATE 50 MG CAPSULE PO ONE (16:32)
[2019-02-12 16:59] VITALS: BP 193/94
[2019-02-12] MEDS ORDERED: OLANZAPINE 5 MG TABLET PO ONE (17:03)
== END 2019-02-12 17:18 | disposition home or self-care (01) ==
LOC: ER 14:31
DX: F41.9 Anxiety disorder, unspecified (principal); T43.596A Underdosing of other antipsychotics and neuroleptics, initial encounter; Z91.120 Patient's intentional underdosing of medication regimen due to financial hardship; Z91.14 Patient's other noncompliance with medication regimen; Z76.0 Encounter for issue of repeat prescription; I10 Essential (primary) hypertension; Z79.899 Other long term (current) drug therapy; J45.909 Unspecified asthma, uncomplicated; F17.200 Nicotine dependence, unspecified, uncomplicated
CPT/HCPCS: 99281

== ENCOUNTER 2019-03-30 18:40 | Emergency (ER) | payer SELFPAY ==
--- NOTE | 2019-03-30 19:20 | ER Document Report ---
ED Medical Screen (RME) - General Chief Complaint: Vaginal Bleeding Stated Complaint: VAGINAL BLEEDING Time Seen by Provider: 03/30/19 19:17 Mode of Arrival: Ambulatory Information source: Patient Notes: [id number] presents to ED for complaint of lower abdominal pain/low back pain/frequent urination, urgency and blood in urine. She states she has had a hysterectomy. She also has a history of Crohn's. She is got a history of anxiety. She is but states she smokes a third a pack a day drinks occasionally smokes does marijuana edibles and does not work. She is alert oriented full se ntences walks with a even steady gait. I have greeted and performed a rapid initial assessment of this patient. A comprehensive ED assessment and evaluation of the patient, analysis of test results and completion of medical decision making process will be conducted by an additional ED providers. TRAVEL OUTSIDE OF THE [place] IN LAST 30 DAYS: No - Related Data Allergies/Adverse Reactions: No Known Allergies Allergy (Verified 03/30/19 18:41) Past Medical History - Past Medical History Cardiac Medical History: Reports: Hx Hypertension - noncompliant with medications Pulmonary Medical History: Reports: Hx Asthma - states is not on any meds-asthma is prn Renal/ Medical History: Reports: Hx Ovarian Cysts. Denies: Hx Peritoneal Dialysis GI Medical History: Reports: Hx Crohn's Disease - in remission for 2 years, Hx Hepatitis, Hx Ulcer, Hx Colonoscopy, Hx Endoscopy Musculoskeltal Medical History: Reports Hx Arthritis, Reports Hx Musculoskeletal Trauma Skin Medical History: Reports Hx Cellulitis Psychiatric Medical History: Reports: Hx Anxiety, Hx Attention Deficit Hyperactivity Disorder, Hx Bipolar Disorder, Hx Depression, Hx Schizophrenia Infectious Medical History: Reports: Hx Hepatitis, Hx HIV Past Surgical History: Reports: Hx Hysterectomy, Hx Oral Surgery - Immunizations Immunizations up to date: No Hx Diphtheria, Pertussis, Tetanus Vaccination: Yes - <5 years Physical Exam - Vital signs Vitals: Temp Pulse Resp BP Pulse Ox 99.3 F 84 22 H 151/90 H 97 03/30/19 18:47 03/30/19 18:47 03/30/19 18:47 03/30/19 18:47 03/30/19 18:47 Course - Vital Signs Vital signs: Temp Pulse Resp BP Pulse Ox 99.3 F 84 22 H 151/90 H 97 03/30/19 18:47 03/30/19 18:47 03/30/19 18:47 03/30/19 18:47 03/30/19 18:47
[2019-03-30 19:49] LABS: ABSOLUTE LYMPHOCYTES (AUTO) 2.1 10^3/uL (0.5-4.7); ABSOLUTE MONOCYTES (AUTO) 0.6 10^3/uL (0.1-1.4); ABSOLUTE NEUT (AUTO) 6.2 10^3/uL (1.7-8.2); BASOPHILS % (AUTO) 0.4 % (0-2); EOSINOPHILS % (AUTO) 0.2 % (0-6); HEMATOCRIT 39.2 % (36.0-47.0); HEMOGLOBIN 13.2 g/dL (12.0-15.5); LYMPHOCYTES % (AUTO) 23.4 % (13-45); MEAN CORPUSCULAR HGB CONC 33.7 g/dL (32.0-36.0); MEAN CORPUSCULAR VOLUME 83 fl (80-97); MONOCYTES % (AUTO) 6.3 % (3-13); PLATELET COUNT 238 10^3/uL (150-450); RED BLOOD COUNT 4.71 10^6/uL (3.72-5.28); SEGMENTED NEUTROPHILS % (AUTO) 69.7 % (42-78); TOTAL CELLS COUNTED % (AUTO) 100 %; WHITE BLOOD COUNT 8.9 10^3/uL (4.0-10.5)
[2019-03-30 20:06] LABS: APPEARANCE,URINE CLOUDY; BILIRUBIN,URINE NEGATIVE (NEGATIVE); COLOR,URINE YELLOW; GLUCOSE, URINE NEGATIVE (NEGATIVE); KETONES,URINE NEGATIVE (NEGATIVE); LEUKOCYTE ESTERASE,URINE MODERATE (NEGATIVE); NITRITE,URINE NEGATIVE (NEGATIVE); PROTEIN,URINE 100 mg/dL (NEGATIVE); URINE SPECIFIC GRAVITY 1.023
[2019-03-30 20:18] LABS: ALBUMIN 4.6 g/dL (3.5-5.0); ALKALINE PHOSPHATASE 62 U/L (38-126); ANION GAP 11 (5-19); ASPARTATE AMINO TRANSFERASE 20 U/L (14-36); BILIRUBIN,DIRECT 0.4 mg/dL (0.0-0.4); BILIRUBIN,TOTAL 0.7 mg/dL (0.2-1.3); BLOOD UREA NITROGEN 10 mg/dL (7-20); CALCIUM 10.3 mg/dL (8.4-10.2); CARBON DIOXIDE 27 mmol/L (22-30); CHLORIDE 100 mmol/L (98-107); GLUCOSE 102 mg/dL (75-110); POTASSIUM 3.4 mmol/L (3.6-5.0); TOTAL PROTEIN 8.5 g/dL (6.3-8.2)
[2019-03-30] MEDS ORDERED: CEFTRIAXONE 1 GM/D5W RTU 1 GM/50 ML RTUPB IV ONE (20:43)
[2019-03-30] MEDS ORDERED: OLANZAPINE 5 MG TABLET PO ONE (20:47)
[2019-03-30] MEDS ORDERED: PHENAZOPYRIDINE HCL 200 MG TABLET PO ONE (20:49)
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
[2019-03-30 21:07] VITALS: BP 131/68
== END 2019-03-30 21:07 | disposition home or self-care (01) ==
LOC: ER 18:40
DX: N39.0 Urinary tract infection, site not specified (principal); F41.9 Anxiety disorder, unspecified; R35.0 Frequency of micturition; R10.30 Lower abdominal pain, unspecified; N93.8 Other specified abnormal uterine and vaginal bleeding; I10 Essential (primary) hypertension
CPT/HCPCS: 99283; 96374; 36415; 87086; 85025; 80053; 81001; J3490; J0696

== ENCOUNTER 2019-06-13 13:04 | Emergency (ER) | payer SELFPAY ==
[2019-06-13 13:08] VITALS: BP 152/107
[2019-06-13] MEDS ORDERED: OLANZAPINE 5 MG TABLET PO ONE (13:19)
--- NOTE | 2019-06-13 13:24 | ER Document Report ---
HPI - HPI Patient complains to provider of: anxiety Time Seen by Provider: 06/13/19 13:11 Onset: Other Onset/Duration: Sudden Quality of pain: No pain Pain Level: Denies Context: 49-year-old female presents emergency department with complaints of anxiety. Reports she has a history of anxiety. Recently lost her insurance is unable to follow-up with her mental health provider for Zyprexa refill. Patient reports she is been up all night unable to sleep. Patient reports she is been very anxious. Reports she ran out of her meds at the beginning of this last week. Denies other symptoms such as chest pain fever vomiting diarrhea. Review of records shows patient has a history of schizophrenia and bipolar. Associated Symptoms: None Exacerbated by: Denies Relieved by: Denies Similar symptoms previously: Yes Recently seen / treated by doctor: No - REPRODUCTIVE Reproductive: DENIES: : Past Medical History - General Information source: Patient - Social History Smoking Status: Current Every Day Smoker Cigarette use (# per day): Yes Frequency of alcohol use: Occasional Drug Abuse: None Occupation: Unemployed Family History: CAD - mother-possible, hx unclear, Hypertension Patient has suicidal ideation: No Patient has homicidal ideation: No - Past Medical History Cardiac Medical History: Reports: Hx Hypertension - noncompliant with medications Pulmonary Medical History: Reports: Hx Asthma - states is not on any meds-asthma is prn Renal/ Medical History: Reports: Hx Ovarian Cysts. Denies: Hx Peritoneal Dialysis GI Medical History: Reports: Hx Crohn's Disease - in remission for 2 years, Hx Hepatitis, Hx Ulcer, Hx Colonoscopy, Hx Endoscopy Musculoskeletal Medical History: Reports Hx Arthritis, Reports Hx Musculoskeletal Trauma Skin Medical History: Reports Hx Cellulitis Psychiatric Medical History: Reports: Hx Anxiety, Hx Attention Deficit Hyperactivity Disorder, Hx Bipolar Disorder, Hx Depression, Hx Schizophrenia Infectious Medical History: Reports: Hx Hepatitis, Hx HIV Past Surgical History: Reports: Hx Hysterectomy, Hx Oral Surgery - Immunizations Immunizations up to date: No Hx Diphtheria, Pertussis, Tetanus Vaccination: Yes - <5 years Vertical Provider Document - CONSTITUTIONAL Agree With Documented VS: Yes Exam Limitations: No Limitations General Appearance: WD/WN, No Apparent Distress - INFECTION CONTROL TRAVEL OUTSIDE OF THE [place] IN LAST 30 DAYS: No - HEENT HEENT: Atraumatic, Normocephalic - NECK Neck: Normal Inspection, Supple - RESPIRATORY Respiratory: No Respiratory Distress - CARDIOVASCULAR Cardiovascular: Regular Rate - MUSCULOSKELETAL/EXTREMETIES Musculoskeletal/Extremeties: MAEW, FROM, Non-Tender - NEURO Level of Consciousness: Awake, Alert, Appropriate Motor/Sensory: No Motor Deficit - DERM Integumentary: Warm, Dry Course - Re-evaluation Re-evalutation: 06/13/19 13:27 49-year-old female with history of schizophrenia and bipolar presents today for request for Zyprexa medication refill. Patient received 1 dose here. Patient was given a prescription for this for 2 weeks. She was also instructed to follow-up with mental health. She was given a resource list for outpatient treatment. She verbalized understanding to all instructions. Dictation of this chart was performed using voice recognition software; therefore, there may be some unintended grammatical errors. - Vital Signs Vital signs: Temp Pulse Resp BP Pulse Ox 98.1 F 66 20 152/107 H 100 06/13/19 13:07 06/13/19 13:07 06/13/19 13:07 06/13/19 13:07 06/13/19 13:07 Discharge - Discharge Clinical Impression: Anxiety, Medication refill Condition: Stable Disposition: HOME, SELF-CARE Instructions: Anxiety ([facility]) Additional Instructions: *You have been evaluated history of anxiety, medication refill *Take medication as prescribed *Follow up with mental health this week, see outpatient referral list provided *Return to ED for worsening condition, changes, needs Monitor your blood pressure. Your blood pressure was elevated today. This may be because you were anxious, in pain or because you need medication. It is important to follow up with your primary care provider for full evaluation. Prescriptions: Olanzapine [Zyprexa 5 mg Tablet] 20 mg PO DAILY #30 tablet Forms: Elevated Blood Pressure
== END 2019-06-13 13:25 | disposition home or self-care (01) ==
LOC: ER 13:04
DX: Z76.0 Encounter for issue of repeat prescription (principal); F41.9 Anxiety disorder, unspecified; F17.210 Nicotine dependence, cigarettes, uncomplicated; I10 Essential (primary) hypertension; J45.909 Unspecified asthma, uncomplicated
CPT/HCPCS: 99283

== ENCOUNTER 2019-06-16 20:06 | Emergency (ER) | payer SELFPAY ==
[2019-06-16] MEDS ORDERED: OLANZAPINE 5 MG TABLET PO ONE (21:47)
[2019-06-16 21:51] VITALS: BP 142/97
--- NOTE | 2019-06-16 21:52 | ER Document Report ---
HPI - HPI Patient complains to provider of: anxiety Time Seen by Provider: 06/16/19 21:43 Context: Patient is a 49-year-old female schizophrenia bipolar presents to the emergency department for medication refill. Patient voices she was at this facility a few days ago for anxiety. States she was given a 30-day supply of her Zyprexa. States she thinks she may have thrown away the prescription on accident and did not get it filled. States she continues to feel anxious. States a lot of her family is coming into town for the holidays. States she feels her self breathing fast intermittently. Patient's denying any chest pain or nausea at this time. States she does take 20 mg of Zyprexa daily. Patient's denying any suicidal or homicidal ideations at this time. - REPRODUCTIVE Reproductive: DENIES: : Past Medical History - General Information source: Patient - Social History Smoking Status: Unknown if Ever Smoked Family History: CAD - mother-possible, hx unclear, Hypertension - Past Medical History Cardiac Medical History: Reports: Hx Hypertension - noncompliant with medications Pulmonary Medical History: Reports: Hx Asthma - states is not on any meds-asthma is prn Renal/ Medical History: Reports: Hx Ovarian Cysts. Denies: Hx Peritoneal Dialysis GI Medical History: Reports: Hx Crohn's Disease - in remission for 2 years, Hx Hepatitis, Hx Ulcer, Hx Colonoscopy, Hx Endoscopy Musculoskeletal Medical History: Reports Hx Arthritis, Reports Hx Musculoskeletal Trauma Skin Medical History: Reports Hx Cellulitis Psychiatric Medical History: Reports: Hx Anxiety, Hx Attention Deficit Hyperactivity Disorder, Hx Bipolar Disorder, Hx Depression, Hx Schizophrenia Infectious Medical History: Reports: Hx Hepatitis, Hx HIV Past Surgical History: Reports: Hx Hysterectomy, Hx Oral Surgery - Immunizations Immunizations up to date: No Hx Diphtheria, Pertussis, Tetanus Vaccination: Yes - <5 years Vertical Provider Document - CONSTITUTIONAL Agree With Documented VS: Yes Notes: GENERAL: Alert, interacts well. Shaking leg up and down, anxious appearing. HEAD: Normocephalic, atraumatic. EYES: Pupils equal, round, and reactive to light. Extraocular movements intact. ENT: Oral mucosa moist, tongue midline. NECK: Full range of motion. Supple. Trachea midline. LUNGS: Clear to auscultation bilaterally, no wheezes, rales, or rhonchi. No respiratory distress. HEART: Regular rate and rhythm. No murmur ABDOMEN: Soft, non-tender. Non-distended. Bowel sounds present in all 4 quadrants. EXTREMITIES: Moves all 4 extremities spontaneously. No edema, normal radial and dorsalis pedis pulses bilaterally. No cyanosis. BACK: no cervical, thoracic, lumbar midline tenderness. No saddle anesthesia, normal distal neurovascular exam. NEUROLOGICAL: Alert and oriented x3. Normal speech. cranial nerves II through XII grossly intact. PSYCH: Flat affect, anxious mood. SKIN: Warm, dry, normal turgor. No rashes or lesions noted. - INFECTION CONTROL TRAVEL OUTSIDE OF THE [place] IN LAST 30 DAYS: No Course - Re-evaluation Re-evalutation: In reviewing past charts it does appear the patient has been here multiple times for psychiatric evaluation. On 04/17/2019 patient was given 30 Zyprexa by a ED provider, on 02/16/2019 she was given 20 Zyprexa by an ED provider, and again on 11/13/2018 and she was given 30 pills of Zyprexa by an ED provider. 20 mg each. I discussed with patient at length she needs to follow-up with mental health for this medication refills. 06/16/19 21:50 I have given the patient a dose of Zyprexa in the emergency department. Of also given her a 7-day prescription. I discussed with her her need for close follow- up with mental health outpatient. I have given her referrals to [facility] as well as paperwork in the emergency department for mental health team community outpatient referral list. Discussed with patient is important that she follows up outpatient for continued mental health. Patient voices understanding. Stable for discharge. 06/16/19 21:57 I does appear the last time patient filled her Zyprexa in our computer system is 04/21/2019. Discharge - Discharge Clinical Impression: Anxiety, Medication refill Condition: Stable Disposition: HOME, SELF-CARE Instructions: Anxiety ([facility]) Additional Instructions: As we discussed you have been seen and treated in the emergency department for your anxiety. Please take Zyprexa as prescribed. Please also make sure you follow-up with mental health, phone numbers have been provided in this packet. Please return to the emergency department for any concerns. Prescriptions: Olanzapine [Zyprexa] 20 mg PO DAILY #7 tablet Referrals: [facility] [Provider Group] - Follow up as needed
== END 2019-06-16 21:55 | disposition home or self-care (01) ==
LOC: ER 20:06
DX: F41.9 Anxiety disorder, unspecified (principal); I10 Essential (primary) hypertension
CPT/HCPCS: 99283